=== PATIENT | male | born 1955 | race African-American/Black ===

== ENCOUNTER 2016-04-12 12:41 | Day surgery (SDC) | payer MEDICAID, MEDICARE ==
[2016-04-12 13:21] LABS: Mean Platelet Volume 8.6
[2016-04-12 13:29] LABS: INR 1.6 (<1.1); Prothrombin Time 15.6 sec (9.0-12.0)
[2016-04-12 13:39] VITALS: RESP 16; TEMP 98.5
[2016-04-12 15:37] VITALS: BP 131/74; PULSE 70
--- NOTE | 2016-04-13 09:37 | US ---
EXAMINATION TYPE: US paracentesis abd w/image DATE OF EXAM: 04/12/2016 2:58 PM COMPARISON: NONE HISTORY: Ascites. PROCEDURE: Maximal barrier technique was utilized. The skin overlying a suitable pocket of fluid was localized with ultrasound and the overlying skin was prepped and draped. Ultrasound was utilized with sterile technique. Lidocaine was used for local anesthesia and a skin renato made with a scalpel. Catheter was advanced under direct ultrasound guidance into a suitable pocket of fluid and approximately 5.9 liter s of serous fluid were removed. Catheter was withdrawn and hemostasis achieved. There is no immedia te complication; the patient is discharged in stable condition. IMPRESSION: STATUS POST ULTRASOUND GUIDED PARACENTESIS FOR PALLIATION OF ASCITES. THIS PROCEDURE WA S PERFORMED BY THE UNDERSIGNED.
== END 2016-04-12 15:30 | disposition home or self-care (01) ==
LOC: RADPROMAIN 12:41
PROVIDERS: ATTEND Internal Medicine Hematology & Oncology
DX: R18.8 Other ascites (principal); Z88.0 Allergy status to penicillin; Z88.8 Allergy status to other drugs, medicaments and biological substances
CPT/HCPCS: 36415; 49083; 85049; 85610

== ENCOUNTER 2016-05-08 13:10 | Inpatient (IN) | payer MEDICAID, MEDICARE ==
--- NOTE | 2016-05-08 13:20 | ED ---
Altered Mental Status HPI - General Stated Complaint: Dehydration Time Seen by Provider: 05/08/16 13:10 Source: patient, family, EMS, RN notes reviewed, old records reviewed Mode of arrival: EMS - History of Present Illness Initial Comments: This is a 60-year-old male with history of pancreatic cancer who is being treated by chemotherapy who is brought in for evaluation for some hallucinations and altered mental status also possible dehydration. Again yesterday. He continues in today. Also was reported have some coffee-ground emesis the patient himself denies any GI bleeding. Other complaints are voiced at this time MD Complaint: altered mental status, confusion, other - Related Data Home Medications Medication Instructions Recorded Confirmed Furosemide [Lasix] 20 mg PO DAILY@0800 07/30/14 05/08/16 Lisinopril [Prinivil] 20 mg PO BID@0800,1700 07/30/14 05/08/16 Lipase/Protease/Amylase [Creon Dr 1 cap PO AC-TID 01/28/16 05/08/16 12,000 Units Capsule] Carvedilol [Coreg] 12.5 mg PO BID@0800,1700 01/29/16 05/08/16 Methadone [Dolophine] 10 mg PO TID 01/29/16 05/08/16 Polyethylene Glycol 3350 [Miralax] 17 gm PO TID 01/29/16 05/08/16 Prochlorperazine [Compazine] 10 mg PO Q6H PRN 01/29/16 05/08/16 Verapamil HCl [Verapamil ER] 240 mg PO HS 01/29/16 05/08/16 Ondansetron [Zofran ODT] 8 mg PO Q12HR PRN 04/10/16 05/08/16 Cyanocobalamin [Vitamin B-12] 500 mcg PO DAILY 05/08/16 05/08/16 Ferrous Sulfate [Feosol] 325 mg PO DAILY@0800 05/08/16 05/08/16 Magnesium Oxide [Mag-Ox] 400 mg PO DAILY 05/08/16 05/08/16 Omeprazole [PriLOSEC] 20 mg PO DAILY@0800 05/08/16 05/08/16 Potassium Chloride ER [K-Dur 20] 20 meq PO DAILY@0800 02/21/17 02/21/17 Rivaroxaban [Xarelto] 20 mg PO DAILY@0800 05/08/16 05/08/16 Previous Rx's Medication Instructions Recorded Dicyclomine [Bentyl] 10 mg PO TID #90 cap 02/02/16 Allergies Allergy/AdvReac Type Severity Reaction Status Date / Time Penicillins Allergy Rash/Hives Verified 05/08/16 15:05 rofecoxib [From Vioxx] Allergy Unknown Verified 05/08/16 15:05 NARCOTICS Allergy Unknown Uncoded 05/08/16 15:06 Review of Systems ROS Statement: Those systems with pertinent positive or pertinent negative responses have been documented in the HPI. ROS Other: All systems not noted in ROS Statement are negative. Past Medical History Past Medical History: Diabetes Mellitus, Hypertension Additional Past Medical History / Comment(s): pancreatic cancer History of Any Multi-Drug Resistant Organisms: None Reported Past Surgical History: No Surgical Hx Reported Additional Past Surgical History / Comment(s): implanted port Past Anesthesia/Blood Transfusion Reactions: No Reported Reaction Past Psychological History: No Psychological Hx Reported Smoking Status: Current some day smoker Past Alcohol Use History: None Reported Past Drug Use History: None Reported - Past Family History Father Family Medical History: Unable to Obtain Mother Family Medical History: Unable to Obtain General Exam - General Exam Comments Initial Comments: This is a well-developed well-nourished awake alert male General appearance: alert, in no apparent distress Head exam: Present: atraumatic, normocephalic, normal inspection Eye exam: Present: normal appearance, PERRL, EOMI. Absent: scleral icterus, conjunctival injection, periorbital swelling ENT exam: Present: normal exam, mucous membranes moist Neck exam: Present: normal inspection. Absent: tenderness, meningismus, lymphadenopathy Respiratory exam: Present: normal lung sounds bilaterally. Absent: respiratory distress, wheezes, rales, rhonchi, stridor Cardiovascular Exam: Present: regular rate, normal rhythm, normal heart sounds. Absent: systolic murmur, diastolic murmur, rubs, gallop, clicks GI/Abdominal exam: Present: soft, distended (The exam is consistent with ascites ), normal bowel sounds. Absent: tenderness, guarding, rebound, rigid, pulsatile mass, hernia Rectal exam: Present: deferred Extremities exam: Present: normal inspection, full ROM, normal capillary refill. Absent: tenderness, pedal edema, joint swelling, calf tenderness Back exam: Present: normal inspection Neurological exam: Present: alert, oriented X3, CN II-XII intact Psychiatric exam: Present: normal affect, normal mood Skin exam: Present: warm, dry, intact, normal color. Absent: rash Course Vital Signs 05/08/16 05/08/16 05/08/16 13:20 14:39 16:09 Temperature 97 F L 97.2 F L 98.1 F Pulse Rate 82 82 87 Respiratory 18 18 18 Rate Blood Pressure 130/63 116/67 127/72 O2 Sat by Pulse 100 100 100 Oximetry Medical Decision Making - Medical Decision Making Patient is starting get a little more responsive per his . This appears be secondary to dehydration patient be admitted for continued IV hydration and monitoring. - Lab Data Result diagrams: 05/08/16 13:53 05/08/16 13:53 Lab Results 05/08/16 05/08/16 05/08/16 Range/Units 13:53 13:53 13:53 WBC (3.8-10.6) k/uL RBC (4.30-5.90) m/uL Hgb (13.0-17.5) gm/dL Hct (39.0-53.0) % MCV (80.0-100.0) fL MCH (25.0-35.0) pg MCHC (31.0-37.0) g/dL RDW (11.5-15.5) % Plt Count (150-450) k/uL Neutrophils % % Lymphocytes % % Monocytes % % Eosinophils % % Basophils % % Neutrophils # (1.3-7.7) k/uL Lymphocytes # (1.0-4.8) k/uL Monocytes # (0-1.0) k/uL Eosinophils # (0-0.7) k/uL Basophils # (0-0.2) k/uL Manual Slide Review Poikilocytosis (manual Anisocytosis Sodium 142 (137-145) mmol/L Potassium 3.5 (3.5-5.1) mmol/L Chloride 105 (98-107) mmol/L Carbon Dioxide 27 (22-30) mmol/L Anion Gap 10 mmol/L BUN 16 (9-20) mg/dL Creatinine 0.55 L (0.66-1.25) mg/dL Est GFR (MDRD) Af Amer >60 (>60 ml/min/1.73 sqM) Est GFR (MDRD) Non-Af >60 (>60 ml/min/1.73 sqM) Glucose 105 H (74-99) mg/dL POC Glucose (mg/dL) (75-99) mg/dL POC Glu [employer] ID Calcium 8.4 (8.4-10.2) mg/dL Magnesium 1.6 (1.6-2.3) mg/dL Total Bilirubin 1.1 (0.2-1.3) mg/dL AST 104 H (17-59) U/L ALT 50 (21-72) U/L Alkaline Phosphatase 90 (38-126) U/L Total Creatine Kinase 26 L (55-170) U/L CK-MB (CK-2) 0.4 (0.0-2.4) ng/mL CK-MB (CK-2) Rel Index 1.5 Total Protein 6.8 (6.3-8.2) g/dL Albumin 2.6 L (3.5-5.0) g/dL Amylase 33 (30-110) U/L Lipase 21 L (23-300) U/L Blood Type O Positive Blood Type Recheck No Antibody Screen NEGATIVE Spec Expiration Date 05/11/2016235205/08/16 05/08/16 Range/Units 13:53 14:14 WBC 2.5 L (3.8-10.6) k/uL RBC 3.31 L (4.30-5.90) m/uL Hgb 9.6 L D (13.0-17.5) gm/dL Hct 29.7 L (39.0-53.0) % MCV 89.8 (80.0-100.0) fL MCH 29.0 (25.0-35.0) pg MCHC 32.3 (31.0-37.0) g/dL RDW 18.7 H (11.5-15.5) % Plt Count 82 L D (150-450) k/uL Neutrophils % 71 % Lymphocytes % 23 % Monocytes % 3 % Eosinophils % 1 % Basophils % 0 % Neutrophils # 1.8 (1.3-7.7) k/uL Lymphocytes # 0.6 L (1.0-4.8) k/uL Monocytes # 0.1 (0-1.0) k/uL Eosinophils # 0.0 (0-0.7) k/uL Basophils # 0.0 (0-0.2) k/uL Manual Slide Review Performed Poikilocytosis (manual Present Anisocytosis Slight Sodium (137-145) mmol/L Potassium (3.5-5.1) mmol/L Chloride (98-107) mmol/L Carbon Dioxide (22-30) mmol/L Anion Gap mmol/L BUN (9-20) mg/dL Creatinine (0.66-1.25) mg/dL Est GFR (MDRD) Af Amer (>60 ml/min/1.73 sqM) Est GFR (MDRD) Non-Af (>60 ml/min/1.73 sqM) Glucose (74-99) mg/dL POC Glucose (mg/dL) 94 (75-99) mg/dL POC Glu [employer]ist ID Rebecca, Christiana Calcium (8.4-10.2) mg/dL Magnesium (1.6-2.3) mg/dL Total Bilirubin (0.2-1.3) mg/dL AST (17-59) U/L ALT (21-72) U/L Alkaline Phosphatase (38-126) U/L Total Creatine Kinase (55-170) U/L CK-MB (CK-2) (0.0-2.4) ng/mL CK-MB (CK-2) Rel Index Total Protein (6.3-8.2) g/dL Albumin (3.5-5.0) g/dL Amylase (30-110) U/L Lipase (23-300) U/L Blood Type Blood Type Recheck Antibody Screen Spec Expiration Date - EKG Data -: EKG Interpreted by Ma EKG shows normal: sinus rhythm (Sinus rhythm rate is 79. Interval 122 QRS duration 124 QT/QTC of 396/454 nonspecific interventricular conduction delay nonspecific ST-T wave configuration artifact is present.) - Radiology Data Radiology results: report reviewed (I did review the imaging and report no acute findings), image reviewed Disposition Clinical Impression: Acute encephalopathy, Dehydration, Pancreatic cancer, Chronic pain, Abdominal pain Disposition: ADMITTED IP TO THIS [facility] Condition: Stable
[2016-05-08 14:24] LABS: Anisocytosis Slight; Basophils % (A) 0 %; CH 28.7; Eosinophils % (A) 1 %; HCT 29.7 % (39.0-53.0); Immature Gran Flag Marked; Luc # (Auto) 0.05; Luc % (Auto) 2; Lymphocytes # (A) 0.6 k/uL (1.0-4.8); Lymphocytes % (A) 23 %; MCHC 32.3 g/dL (31.0-37.0); MCV 89.8 fL (80.0-100.0); Mean Platelet Volume 9.3; Monocytes # (A) 0.1 k/uL (0-1.0); Monocytes % (A) 3 %; Neutrophils # (A) 1.8 k/uL (1.3-7.7); Neutrophils % (A) 71 %; RBC 3.31 m/uL (4.30-5.90); RDW 18.7 % (11.5-15.5); WBC 2.5 k/uL (3.8-10.6); WBC (Perox) 2.79
[2016-05-08 14:26] LABS: Glucose,Whole Blood 94 mg/dL (75-99)
[2016-05-08 14:27] LABS: HGB 9.6 gm/dL (13.0-17.5)
[2016-05-08 14:31] LABS: ALT 50 U/L (21-72); AST 104 U/L (17-59); Alkaline Phosphatase 90 U/L (38-126); Amylase 33 U/L (30-110); Anion Gap 10 mmol/L; Blood Urea Nitrogen 16 mg/dL (9-20); Calcium 8.4 mg/dL (8.4-10.2); Carbon Dioxide 27 mmol/L (22-30); Chloride 105 mmol/L (98-107); Glucose 105 mg/dL (74-99); Magnesium 1.6 mg/dL (1.6-2.3); Non-African American GFR(MDRD) >60 (>60 ml/min/1.73 sqM); Potassium 3.5 mmol/L (3.5-5.1); Sodium 142 mmol/L (137-145); Total Bilirubin 1.1 mg/dL (0.2-1.3); Total Protein 6.8 g/dL (6.3-8.2)
[2016-05-08 14:34] LABS: Manual Review Performed
[2016-05-08] MEDS ORDERED: SODIUM CHLORIDE 0.9% 1,000 ML IV STA (14:37)
--- NOTE | 2016-05-08 14:46 | CT ---
EXAMINATION TYPE: CT brain wo con DATE OF EXAM: 05/08/2016 2:33 PM COMPARISON: NONE HISTORY: 60-year-old male complains of confusion. Patient has a history of CA. TECHNIQUE: Examination was done in axial plane without intravenous contrast. Coronal and sagittal reconstructio ns performed. CT DLP: 874.8 mGycm Automated exposure control for dose reduction was used. FINDINGS: Some prominent streak artifact is noted along the frontal convexities, for example, axial image 13. Otherwise, there is no evidence of acute intracranial hemorrhage, acute ischemic changes, mass, mass -effect, or extra-axial fluid collection. There is no effacement of cerebral sulci or basal subarach noid cisterns. There is no hydrocephalus. There is no midline shift. Toussaint-white matter distinction is preserved. There is moderate confluent white matter hypodensities in both cerebral hemispheres and mild cortical atrophy. Mild mucosal thickening ethmoid air cells. Mastoid air cells are pneumatized. IMPRESSION: No acute intracranial abnormality seen. Moderate confluent changes of chronic small vessel ischemic d isease. Mild chronic ethmoid sinus disease.
[2016-05-08 14:48] LABS: Creatine Kinase MB 0.4 ng/mL (0.0-2.4)
--- NOTE | 2016-05-08 14:48 | XR ---
EXAMINATION TYPE: XR chest 2V DATE OF EXAM: 05/08/2016 2:35 PM COMPARISON: 02/07/2016 HISTORY: Shortness of breath TECHNIQUE: Frontal and lateral views of the chest are obtained. FINDINGS: Scattered senescent parenchymal changes noted. Hyperinflation compatible with COPD. MediPort catheter is in place. No evidence for infiltrate. No evidence for atelectasis. Heart size is stable. Mediastinal structures are stable and grossly unremarkable. No evidence for hilar prominence. Degenerative changes dorsal spine. IMPRESSION: 1. No evidence for acute pulmonary disease.
[2016-05-08] MEDS ORDERED: MORPHINE SULFATE 4 MG/ML SYRINGE IVP STA (17:41)
[2016-05-08] MEDS ORDERED: NALOXONE 0.4 MG/ML 1 ML VIAL IV PRN (17:44)
[2016-05-08] MEDS ORDERED: ONDANSETRON ODT 8 MG TAB.RAPDIS PO PRN (17:47)
[2016-05-08] MEDS ORDERED: PROCHLORPERAZINE 10 MG TAB PO PRN (17:47)
[2016-05-08 21:02] VITALS: BMI 19.8
[2016-05-08 21:41] LABS: Glucose,Whole Blood 93 mg/dL (75-99)
[2016-05-08] MEDS: VERAPAMIL SR 240 MG TABLET.ER PO SCH (22:30)
[2016-05-08] MEDS: DICYCLOMINE 10 MG CAP PO SCH (22:30)
[2016-05-08] MEDS: METHADONE 10 MG TAB PO SCH (22:30)
[2016-05-08] MEDS: SODIUM CHLORIDE 0.9% 1,000 ML IV SCH (22:32)
[2016-05-08] MEDS: POLYETHYLENE GLYCOL 3350 17 GM POWD.PACK PO SCH (22:32)
[2016-05-09] MEDS: NICOTINE 7MG/24HR PATCH TRANSDERM SCH ×2 (00:10→09:13)
[2016-05-09 02:09] LABS: Glucose,Whole Blood 76 mg/dL (75-99)
[2016-05-09] MEDS: MORPHINE SULFATE 4 MG/ML SYRINGE IV PRN (04:29)
[2016-05-09 07:21] LABS: Glucose,Whole Blood 70 mg/dL (75-99)
[2016-05-09] MEDS: DICYCLOMINE 10 MG CAP PO SCH ×3 (09:11→21:35)
[2016-05-09] MEDS: MAGNESIUM OXIDE 400 MG TAB PO SCH (09:12)
[2016-05-09] MEDS: POTASSIUM CHLORIDE ER 20 MEQ TAB.ER PO SCH (09:12)
[2016-05-09] MEDS: FERROUS SULFATE 325 MG TAB PO SCH (09:12)
[2016-05-09] MEDS: RIVAROXABAN 10 MG TAB PO SCH (09:12)
[2016-05-09] MEDS: FUROSEMIDE 20 MG TAB PO SCH (09:12)
[2016-05-09] MEDS: PANTOPRAZOLE 40 MG TABLET PO SCH (09:12)
[2016-05-09] MEDS: LISINOPRIL 20 MG TAB PO SCH ×2 (09:12→17:57)
[2016-05-09] MEDS: LIPASE 5,000/PROTEASE 17,000/AMYLASE 27,0000 PO SCH ×3 (09:12→18:00)
[2016-05-09] MEDS: CARVEDILOL 12.5 MG TAB PO SCH ×2 (09:12→17:57)
[2016-05-09] MEDS: POLYETHYLENE GLYCOL 3350 17 GM POWD.PACK PO SCH ×3 (09:13→21:32)
[2016-05-09] MEDS: METHADONE 10 MG TAB PO SCH ×4 (09:36→21:36)
[2016-05-09] MEDS: SODIUM CHLORIDE 0.9% 1,000 ML IV SCH (09:37)
[2016-05-09] MEDS: DEXTROSE 5%-0.9% NACL 1,000 ML IV SCH ×2 (11:53→22:27)
[2016-05-09] MEDS: CYANOCOBALAMIN 500 MCG TAB PO SCH (11:54)
[2016-05-09 12:01] LABS: Glucose,Whole Blood 88 mg/dL (75-99)
--- NOTE | 2016-05-09 13:01 | HP ---
DATE OF ADMISSION: 05/08/2016 PRESENTING COMPLAINT: Weak, tired. HISTORY OF PRESENTING COMPLAINT: This is a 60-year-old patient of Dr. Link whose oncologist is Dr. Head. Patient's chronic stable medical conditions include diabetes mellitus type 2, hypertension. Patient has been diagnosed with pancreatic cancer back in November of last year. Initially he was getting chemotherapy at [facility], then he is also locally in town with Dr. Head. Last chemo was on April 02. Patient's appetite continues to go down. Patient has increasing abdominal pain, continues to lose weight. Patient is barely eating for the last 4 days. Tired and rundown. The patient's is at bedside, is extensively loosing weight. REVIEW OF SYSTEMS: CONSTITUTIONAL: Weight loss, loss of appetite, tired and rundown. Per the , patient's sensorium is sometimes getting altered. HEENT: None. RESPIRATORY: Shortness of breath. CARDIOVASCULAR: None. GASTROINTESTINAL: Occasional loose stool. GENITOURINARY: None. MUSCULOSKELETAL: None. DERMATOLOGIC: None. HEMATOLOGIC: None. LYMPHATICS: None. PSYCHIATRY: Some depression. NEUROLOGICAL: None. PAST MEDICAL HISTORY: Pancreatic cancer, diabetes mellitus type 2, hypertension, DVT, pancreatic cancer with metastasis to the peritoneal lining and lungs, right leg DVT in February of 2016. PAST SURGICAL HISTORY: Right chest wall port. SOCIAL HISTORY: Patient still smokes a few cigarettes a day. Lives with his . FAMILY HISTORY: Reviewed, noncontributory to the presentation. HOME MEDICATIONS: 1. Verapamil ER 240 mg q.h.s. 2. Xarelto 20 mg daily. 3. Compazine 10 mg q.6 p.r.n. 4. Potassium 20 mEq p.o. daily. 5. MiraLax 17 gm p.o. t.i.d. 6. Zofran 8 mg p.o. q.12 p.r.n. 7. Prilosec 20 mg p.o. daily. 8. Methadone 10 mg p.o. t.i.d. 9. Magnesium oxide 400 mg p.o. daily. 10. Prinivil 20 mg p.o. b.i.d. 11. Creon 12,000 units 1 capsule p.o. t.i.d. 12. Lasix 20 mg p.o. daily. 13. Iron 325 p.o. daily. 14. Bentyl 10 mg p.o. t.i.d. 15. Vitamin B12 five hundred mcg p.o. daily. 16. Coreg 12.5 p.o. b.i.d. Allergies to PENICILLIN, VIOXX, NARCOTICS TYPE UNKNOWN. On examination, vital signs on presentation: Temperature 97, pulse 82, respiration 18, blood pressure 130/63, pulse ox 100% on 2 L. GENERAL APPEARANCE: Thin built, emaciated, sitting up, very tired-appearing. EYES : Pupils equal, conjunctivae are pale. HEENT: External appearance of nose and ears normal. Oral cavity normal. NECK: JVD not raised. Mass not palpable. Respiratory effort increased. LUNGS: Diminished breath sounds. CARDIOVASCULAR: First and second sounds normal. No edema. ABDOMEN: Slightly distended. Tenderness. Liver and spleen not palpable. LYMPHATIC: No lymph nodes palpable in neck or axillae. PSYCHIATRY: Alert and oriented x3. Mood and affect low-appearing. NEUROLOGICAL: Pupils equal, cranial nerves grossly intact, power and sensation grossly intact. MUSCULOSKELETAL: Diffuse wasting of muscles. INVESTIGATIONS: White count 2.5, hemoglobin 9.6, platelets 82, potassium 3.5, albumin 2.6. Chest x-ray nil acute reported. CT scan of the brain nil acute. ASSESSMENT: 1. Metastatic pancreatic cancer with metastases to the peritoneal lining and lungs, undergoing chemotherapy. 2. Chronic obstructive pulmonary disease in a current smoker. 3. Chronic nicotine dependence. Patient active cigarette smoker. 4. History of deep venous thrombosis, chronically on Xarelto. 5. Chronic pain for which patient is on methadone. 6. Metabolic encephalopathy, could be from the cancer itself, also could be from the hefty dose of pain medications patient is getting. 7. Essential hypertension. 8. Severe protein calorie malnutrition. Patient has loss of weight, low albumin, loss of muscle mass. 9. Pancytopenia from chemotherapy. PLAN: Patient's home medications are resumed. Will hold off patient's Lasix, hydrate the fluid. Patient's functional status is declining and this may interfere with patient's other treatment from the chemotherapy. Dr. Head will be consulted. ADVANCED CARE PLANNING: Patient's end of life discussion was held in detail with the patient and . It was explained that the patient's chemotherapy treatment will continue but in the event his heart is to stop and he stops breathing, it may not be the best option to proceed with resuscitation. Patient clearly states he did not wish to be resuscitated in the presence of the . Hence patient's course status is being changed to DNR. Additional time for advanced care planning in addition to the history and physical was about 20 to 25 minutes.
[2016-05-09 16:46] LABS: Glucose,Whole Blood 96 mg/dL (75-99)
[2016-05-09 20:28] LABS: Glucose,Whole Blood 118 mg/dL (75-99)
[2016-05-09] MEDS: VERAPAMIL SR 240 MG TABLET.ER PO SCH (21:31)
--- NOTE | 2016-05-09 23:32 | P.CONS ---
History of Present Illness - Reason for Consult Consult date: 05/09/16 AMS. Pancreatic ca on chemo - History of Present Illness Mr Sagastume is a pleasant AAM, initially seen in consult at [facility] on 02/18/16. He had developed abdominal pain, with decreased appetite and weight loss, since the late spring of 2015. He had CT scans in 08/31 with no specific findings other than a rt lung sub cm nodule. He had a PET on 09/17/15, which was read as indeterminate in the lung nodule with no other suspicious findings mentioned. A hypodensity was seen in the right lobe of the liver ( 2 cm), which was difficult to evaluate due to heteogeneity of the parenchyma. F/U CT chest on revealed abnormal soft tissue involving the tail of the pancreas, measuring 7.8 x 5.6 cm. The PET scan, in retrospect was felt to show abnormal uptake in this region, per an addendum. He was referred to [facility] and had a FNA on 12/30/15 revealing adeno ca. Initial Ca 19-9 was in the 2500 range, and then increased into the 5000 range. He was seen by Dr Brambila at [facility], and started on Gemzar/Abraxane. He had a delay after D1, C1 due to pneumonia. He had the D8 dose on 02/13/16. He was then admitted to [facility] on 02/17/16 with an extensive RLE DVT and progressive ascites. He was treated with IV heparin, and had a paracentesis, with cytology positive. CTA that admission also showed multiple lung nodules , c/w metastases. He was then discharged on Lovenox. He resumed chemo on 03/15/16 , given as D1C2. He was seen for his 1st OV on , as he wanted to transfer his care here. He was continued on chemo. He is s/p 3 cycles, with dose delayed and reduced for cycle 3 due to side effects. Most recent treatment was on 05/03/16 ( D15 C3) He was brought to the ER, as he had been very lethargic and confused over the past 2-3 days, with progressive symptoms. PO intake had been quite poor. There was no h/o n/v/or significant diarrhea. He was admitted and consult placed for further evaluation and recommendations. Review of Systems Constitutional: Reports chronic pain, Reports fatigue, Reports poor appetite, Reports weakness, Reports weight loss Eyes: denies blurred vision, denies pain Ears: deny: decreased hearing, ear discharge, earache, tinnitus Ears, nose, mouth and throat: Denies headache, Denies sore throat Cardiovascular: Reports decreased exercise tolerance Respiratory: Reports dyspnea Gastrointestinal: Reports as per HPI (ascites), Reports abdominal pain Genitourinary: Reports urinary frequency Musculoskeletal: Reports muscle weakness Integumentary: Denies pruritus, Denies rash Neurological: Reports change in mentation, Reports confusion, Reports weakness Psychiatric: Reports confusion Endocrine: Reports fatigue, Reports weight change Hematologic/Lymphatic: Reports as per HPI Past Medical History Past Medical History: Diabetes Mellitus, Deep Vein Thrombosis (DVT), Hypertension Additional Past Medical History / Comment(s): pancreatic cancer with mets to peritoneal lining and lungs; right leg dvt 03/02; History of Any Multi-Drug Resistant Organisms: None Reported Past Surgical History: No Surgical Hx Reported Additional Past Surgical History / Comment(s): right implanted port Past Anesthesia/Blood Transfusion Reactions: No Reported Reaction Past Psychological History: No Psychological Hx Reported Smoking Status: Current some day smoker Past Alcohol Use History: None Reported Past Drug Use History: None Reported - Past Family History Father Family Medical History: Unable to Obtain Mother Family Medical History: Unable to Obtain Medications and Allergies Home Medications Medication Instructions Recorded Confirmed Type Furosemide [Lasix] 20 mg PO DAILY@0800 07/30/14 05/08/16 History Lisinopril [Prinivil] 20 mg PO BID@0800,1700 07/30/14 05/08/16 History Lipase/Protease/Amylase [Creon Dr 1 cap PO AC-TID 01/28/16 05/08/16 History 12,000 Units Capsule] Carvedilol [Coreg] 12.5 mg PO BID@0800,1700 01/29/16 05/08/16 History Methadone [Dolophine] 10 mg PO TID 01/29/16 05/08/16 History Polyethylene Glycol 3350 [Miralax] 17 gm PO TID 01/29/16 05/08/16 History Prochlorperazine [Compazine] 10 mg PO Q6H PRN 01/29/16 05/08/16 History Verapamil HCl [Verapamil ER] 240 mg PO HS 01/29/16 05/08/16 History Ondansetron [Zofran ODT] 8 mg PO Q12HR PRN 04/10/16 05/08/16 History Cyanocobalamin [Vitamin B-12] 500 mcg PO DAILY 05/08/16 05/08/16 History Ferrous Sulfate [Feosol] 325 mg PO DAILY@0800 05/08/16 05/08/16 History Magnesium Oxide [Mag-Ox] 400 mg PO DAILY 05/08/16 05/08/16 History Omeprazole [PriLOSEC] 20 mg PO DAILY@0805/08/16 05/08/16 History Potassium Chloride ER [K-Dur 20] 20 meq PO DAILY@0805/08/16 05/08/16 History Rivaroxaban [Xarelto] 20 mg PO DAILY@79905/08/16 05/08/16 History Allergies Allergy/AdvReac Type Severity Reaction Status Date / Time Penicillins Allergy Rash/Hives Verified 05/08/16 15:05 rofecoxib [From Vioxx] Allergy Unknown Verified 05/08/16 15:05 NARCOTICS Allergy Unknown Uncoded 05/08/16 15:06 Physical Exam Vitals: Vital Signs Temp Pulse Resp BP Pulse Ox 05/09/16 08:00 16 05/09/16 07:00 97 F L 87 16 141/77 97 05/08/16 22:17 98.1 F 94 16 114/66 97 Intake and Output 05/08/16 05/09/16 05/09/16 22:59 06:59 14:59 Intake Total 1040 Balance 1040 Intake: IV 800 Sodium Chloride 0.9% 1, 800 000 ml @ 100 mls/hr IV . Q10H [facility] Rx#:[id number] Oral 240 Other: Voiding Method Toilet Toilet # Voids 1 1 Weight 68.039 kg - Constitutional General appearance: no acute distress - EENT Eyes: EOMI, PERRLA ENT: hearing grossly normal, normal oropharynx - Respiratory Respiratory: bilateral: diminished - Cardiovascular Rhythm: regular Heart sounds: normal: S1, S2 - Gastrointestinal Ascites likely present, but abdomen is soft General gastrointestinal: distended, normal bowel sounds - Integumentary Integumentary: normal - Neurologic Neurologic: CNII-XII intact - Musculoskeletal Musculoskeletal: generalized weakness, strength equal bilaterally - Psychiatric Pt is more responsive. Follows commands appropriately. He was still confused and could not name me. He was able to recall his 's name, but not the month Results CBC & Chem 7: 05/08/16 13:53 05/08/16 13:53 Labs: Abnormal Lab Results - Last 24 Hours (Table) 05/09/16 Range/Units 07:19 POC Glucose (mg/dL) 70 L (75-99) mg/dL Chest x-ray: report reviewed CT Scan - head: report reviewed Assessment and Plan (1) Acute encephalopathy Narrative/Plan: This represents a new finding. The differentials include hepatic encephalopathy , medication effect and dehydration. His liver enzymes did not show any worsening. There was no majorincrease in ascites. Infection is also less likely given his exam and normal vitals. I will however check an ammonia level , and urinalysis. The pt is somehat improved with hydration. Methadone has been held and he is on IV morphine. If additional labs are negative, and the pt fails to improve, I will consider contrast brain imaging Status: Acute (2) Pancreatic cancer Narrative/Plan: The pt has completed 3 cycles with course as noted. CA 19-9 after 2 cycles had shown a response. I will repeat the same. Assuming satisfactory results, and improvement in his clinical condition, chemo will resume as an outpt Status: Acute (3) Pancytopenia due to antineoplastic chemotherapy Narrative/Plan: This is due to chemotherapy. All counts are in a safe range. Continue to monitor and supplement as needed. Hold xarelto if platelets fall below 50K Status: Acute
[2016-05-10 03:01] LABS: Glucose,Whole Blood 111 mg/dL (75-99)
[2016-05-10 06:31] LABS: Anisocytosis Slight; CH 28.4; CHCM 31.8; HCT 29.3 % (39.0-53.0); HDW 2.73; HGB 9.5 gm/dL (13.0-17.5); Hypochromasia Slight; Immature Gran Flag Marked; MCHC 32.4 g/dL (31.0-37.0); MCV 89.7 fL (80.0-100.0); Mean Platelet Volume 10.1; RBC 3.27 m/uL (4.30-5.90); RDW 18.4 % (11.5-15.5); WBC (Perox) 6.12
[2016-05-10 06:40] LABS: INR 1.6 (<1.1); Partial Thromboplastin Time 27.3 sec (22.0-30.0); Prothrombin Time 15.7 sec (9.0-12.0)
[2016-05-10 06:43] LABS: ALT 44 U/L (21-72); AST 70 U/L (17-59); Alkaline Phosphatase 87 U/L (38-126); Anion Gap 7 mmol/L; Blood Urea Nitrogen 9 mg/dL (9-20); Calcium 8.1 mg/dL (8.4-10.2); Carbon Dioxide 28 mmol/L (22-30); Chloride 110 mmol/L (98-107); Glucose 113 mg/dL (74-99); Non-African American GFR(MDRD) >60 (>60 ml/min/1.73 sqM); Sodium 145 mmol/L (137-145); Total Bilirubin 0.7 mg/dL (0.2-1.3)
[2016-05-10 07:06] LABS: Potassium 2.9 mmol/L (3.5-5.1)
[2016-05-10 07:12] LABS: Glucose,Whole Blood 125 mg/dL (75-99)
[2016-05-10 07:43] LABS: Add Differential Manual Differential
[2016-05-10 07:49] LABS: Band Neutrophils % 2.5 %; Metamyelocytes % 0.5 %; Nucleated Red Blood Cells 1 /100 WBC (0-0); Total Cells Counted 200
[2016-05-10 07:50] LABS: Large Platelets Present; Manual Review Performed; WBC 5.7 k/uL (3.8-10.6)
[2016-05-10] MEDS: DEXTROSE 5%-0.9% NACL 1,000 ML IV SCH ×2 (08:19→17:01)
[2016-05-10] MEDS: FERROUS SULFATE 325 MG TAB PO SCH (08:23)
[2016-05-10] MEDS: CARVEDILOL 12.5 MG TAB PO SCH ×2 (08:23→17:00)
[2016-05-10] MEDS: RIVAROXABAN 10 MG TAB PO SCH (08:24)
[2016-05-10] MEDS: LISINOPRIL 20 MG TAB PO SCH (08:24)
[2016-05-10] MEDS: POTASSIUM CHLORIDE ER 20 MEQ TAB.ER PO SCH ×3 (08:24→13:38)
[2016-05-10] MEDS: PANTOPRAZOLE 40 MG TABLET PO SCH (08:24)
[2016-05-10] MEDS: NICOTINE 7MG/24HR PATCH TRANSDERM SCH (08:25)
[2016-05-10] MEDS: FUROSEMIDE 20 MG TAB PO SCH (08:26)
[2016-05-10] MEDS: DICYCLOMINE 10 MG CAP PO SCH ×3 (08:27→21:49)
[2016-05-10] MEDS: MAGNESIUM OXIDE 400 MG TAB PO SCH (08:27)
[2016-05-10] MEDS: POLYETHYLENE GLYCOL 3350 17 GM POWD.PACK PO SCH ×3 (08:29→21:55)
[2016-05-10] MEDS: METHADONE 10 MG TAB PO SCH ×2 (10:04→21:56)
[2016-05-10] MEDS: POTASSIUM CHLORIDE 20 MEQ, LIDOCAINE 2% INJ 20 MG in SODIUM CHLORIDE 0.9% 100 ML IVPB SCH ×2 (10:09→13:22)
[2016-05-10] MEDS: LIPASE 5,000/PROTEASE 17,000/AMYLASE 27,0000 PO SCH ×3 (10:16→17:03)
[2016-05-10] MEDS: POTASSIUM CHLORIDE ER 20 MEQ TAB.ER PO STA ×2 (10:17→13:20)
--- NOTE | 2016-05-10 11:34 | PN ---
Patient is a 60-year-old gentleman with a history of metastatic pancreatic cancer, still complaining of severe abdominal pain. Patient is on oxycodone for that. Came in with nausea, vomiting and diarrhea, resulting in metabolic encephalopathy from dehydration and regarding metabolic encephalopathy, patient is doing well and we are getting an MRI of the brain to rule out any metastatic lesions to the brain and patient appears to be cachectic. REVIEW OF SYSTEMS: GENERAL: Patient is complaining of generalized tiredness, excessive fatigue and severe abdominal pain from his peritoneal metastasis. CARDIOVASCULAR: No chest pain, no orthopnea, no PND, no palpitations. PULMONARY: Denied any shortness of breath. No cough or hemoptysis. GASTROINTESTINAL: No diarrhea, nausea or vomiting. No abdominal pain. Normoactive bowel sounds. NEUROLOGIC: No headaches, no weakness, no numbness. Medications were reviewed. PHYSICAL EXAMINATION: VITAL SIGNS: Temperature 98.3, pulse of 84, respiratory rate of 18, blood pressure 107/69, saturating at 98% on room air. GENERAL EXAMINATION: Patient is thin built, cachectic, alert and oriented x3. Abdomen is distended with minimal diffuse tenderness secondary to metastatic abdominal disease or omental metastasis from pancreatic cancer. Bowel sounds are present. HEENT: Pupils are round and equally reacting to light. EOMI. No scleral icterus. No conjunctival pallor. Normocephalic, atraumatic. No pharyngeal erythema. No thyromegaly. CARDIOVASCULAR: S1 and S2 present. No murmurs, rubs, or gallops. PULMONARY: Chest is clear to auscultation, no wheezing or crackles. MUSCULOSKELETAL: No joint swelling or deformity. EXTREMITIES: No cyanosis, clubbing, or pedal edema. NEUROLOGICAL: Gross neurological examination did not reveal any focal deficits. SKIN: No rashes. LABORATORY DATA: Potassium is low at 2.9, which will be supplemented and patient is getting IV fluids, because of which I am discontinuing Lasix and lisinopril. Patient's blood pressure is on the low-normal side because of which I do not believe patient will require lisinopril at this point of time. Electrolytes will be supplemented. ASSESSMENT AND PLAN: 1. Metastatic pancreatic cancer with peritoneal metastases. 2. Chronic obstructive pulmonary disease without any acute exacerbation. 3. Nicotine dependence. 4. History of deep venous thrombosis for which patient is on Xarelto. 5. Chronic pain secondary to cancer for which patient is on methadone. 6. Metabolic encephalopathy, improved symptoms from dehydration and electrolyte abnormalities. 7. Essential hypertension. 8. Severe protein calorie malnutrition. 9. Pancytopenia, which is improving at this point of time from chemotherapy. 10. Multiple other electrolyte abnormalities secondary to diarrhea. Patient is getting Lasix that will be discontinued, lisinopril will be discontinued. Patient is still having diarrhea and some nausea, vomiting. Patient will be started on gentle hydration with lactated Ringer's because of his elevated chloride. Patient will need GI prophylaxis.
[2016-05-10 11:38] LABS: Glucose,Whole Blood 113 mg/dL (75-99)
[2016-05-10] MEDS: MAGNESIUM SULFATE-D5W PMX 1 GM in DEXTROSE/WATER 1 100ML.BAG IVPB SCH ×2 (13:23→14:22)
[2016-05-10] MEDS: LACTATED RINGERS 1,000 ML IV SCH (13:30)
[2016-05-10] MEDS: FAMOTIDINE 20 MG TAB PO SCH ×2 (13:31→21:49)
[2016-05-10] MEDS: CYANOCOBALAMIN 500 MCG TAB PO SCH (13:32)
[2016-05-10] MEDS: MORPHINE SULFATE 4 MG/ML SYRINGE IV PRN (14:29)
[2016-05-10 17:27] LABS: Glucose,Whole Blood 97 mg/dL (75-99)
[2016-05-10 20:23] LABS: Glucose,Whole Blood 83 mg/dL (75-99)
--- NOTE | 2016-05-10 21:35 | P.PN ---
Subjective The patient overall looks more comfortable. He is more alert and responsive though still somewhat confused. Objective - Vital Signs Vital signs: Vital Signs Temp 97.4 F L 05/10/16 15:36 Pulse 83 05/10/16 16:00 Resp 18 05/10/16 16:00 BP 113/67 05/10/16 15:36 Pulse Ox 98 05/10/16 15:36 - Constitutional General appearance: Present: no acute distress - EENT Eyes: Present: EOMI, PERRLA ENT: Present: hearing grossly normal, normal oropharynx - Respiratory Respiratory: bilateral: CTA - Cardiovascular Rhythm: regular Heart sounds: normal: S1, S2 - Gastrointestinal General gastrointestinal: Present: distended, soft - Integumentary Integumentary: Present: normal - Neurologic Neurologic: Present: CNII-XII intact - Musculoskeletal Musculoskeletal: Present: generalized weakness - Psychiatric Psychiatric Comment(s): The patient is still confused though somewhat improved compared to yesterday. Responses are somewhat faster. He was able to remember that I am his "Chemotherapy Dr ", but could not name me. With some difficulty, he was able to state that this was April. - Labs CBC & Chem 7: 05/10/16 06:25 05/10/16 06:25 Assessment and Plan (1) Acute encephalopathy Narrative/Plan: The patient is somewhat improved , but still significantly confused, compared to his baseline. Ammonia levels were normal. There is no evidence of infection. As noted, based on labs and clinical exam there does not appear to be any significant liver decompensation. I will check MRI of the brain. If negative, it is more likely that the change in mental status is due to dehydration and would be expected to improve further with continuing hydration Status: Acute (2) Pancreatic cancer Narrative/Plan: His CA 19-9 level, done prior to his last chemotherapy showed further decrease , indicating response. Assuming that the patient is able to improve sufficiently, we will resume chemotherapy in the outpatient setting. In that situation, we may have to consider dose adjustment , given his ongoing problems with a poor appetite and resultant progressive weakness Status: Acute (3) Pancytopenia due to antineoplastic chemotherapy Status: Acute
[2016-05-10] MEDS: VERAPAMIL SR 240 MG TABLET.ER PO SCH (21:55)
[2016-05-11] MEDS: DEXTROSE 5%-0.9% NACL 1,000 ML IV SCH ×2 (01:40→12:06)
[2016-05-11 02:06] LABS: Glucose,Whole Blood 83 mg/dL (75-99)
[2016-05-11] MEDS: METHADONE 10 MG TAB PO SCH ×5 (02:45→20:47)
[2016-05-11] MEDS: LACTATED RINGERS 1,000 ML IV SCH ×2 (04:01→10:54)
[2016-05-11 06:10] LABS: Anisocytosis Slight; CH 28.7; CHCM 32.4; HCT 26.3 % (39.0-53.0); HDW 2.88; HGB 8.8 gm/dL (13.0-17.5); Large Platelets Flag Slight; MCH 29.7 pg (25.0-35.0); MCHC 33.4 g/dL (31.0-37.0); MCV 88.9 fL (80.0-100.0); Mean Platelet Volume 11.2; RBC 2.96 m/uL (4.30-5.90); RDW 18.9 % (11.5-15.5)
[2016-05-11 06:18] LABS: Anion Gap 4 mmol/L; Blood Urea Nitrogen 8 mg/dL (9-20); Carbon Dioxide 28 mmol/L (22-30); Chloride 109 mmol/L (98-107); Glucose 92 mg/dL (74-99); Non-African American GFR(MDRD) >60 (>60 ml/min/1.73 sqM); Potassium 3.5 mmol/L (3.5-5.1); Sodium 141 mmol/L (137-145)
[2016-05-11 07:19] LABS: Glucose,Whole Blood 89 mg/dL (75-99)
[2016-05-11] MEDS: CARVEDILOL 12.5 MG TAB PO SCH ×2 (08:38→18:35)
[2016-05-11] MEDS: LIPASE 5,000/PROTEASE 17,000/AMYLASE 27,0000 PO SCH ×3 (08:43→18:35)
[2016-05-11] MEDS: NICOTINE 7MG/24HR PATCH TRANSDERM SCH (08:43)
[2016-05-11] MEDS: RIVAROXABAN 10 MG TAB PO SCH (08:44)
[2016-05-11] MEDS: POTASSIUM CHLORIDE ER 20 MEQ TAB.ER PO SCH (08:44)
[2016-05-11] MEDS: FERROUS SULFATE 325 MG TAB PO SCH (08:44)
[2016-05-11] MEDS: DICYCLOMINE 10 MG CAP PO SCH ×3 (08:45→20:48)
[2016-05-11] MEDS: FAMOTIDINE 20 MG TAB PO SCH ×2 (08:45→20:48)
[2016-05-11] MEDS: POLYETHYLENE GLYCOL 3350 17 GM POWD.PACK PO SCH ×3 (08:45→20:48)
[2016-05-11] MEDS: MAGNESIUM OXIDE 400 MG TAB PO SCH (08:45)
[2016-05-11] MEDS ORDERED: POTASSIUM CHLORIDE ER 20 MEQ TAB.ER PO STA (10:10)
[2016-05-11 11:22] LABS: Glucose,Whole Blood 105 mg/dL (75-99)
[2016-05-11] MEDS: CYANOCOBALAMIN 500 MCG TAB PO SCH (12:50)
[2016-05-11 17:25] LABS: Glucose,Whole Blood 87 mg/dL (75-99)
--- NOTE | 2016-05-11 17:33 | P.PN ---
Subjective Principal diagnosis: Mental status changes. Metastatic pancreatic cancer The patient continues to improve slowly in terms of alertness unresponsiveness. He still has periods of confusion Objective - Vital Signs Vital signs: Vital Signs Temp 96.1 F L 05/11/16 15:36 Pulse 104 H 05/11/16 15:47 Resp 18 05/11/16 15:47 BP 125/75 05/11/16 15:36 Pulse Ox 97 05/11/16 15:36 Intake & Output 05/10/16 05/11/16 05/11/16 18:59 06:59 18:59 Intake Total 1115 998 525 Output Total 4 Balance 1111 998 525 Weight 68.039 kg 68.039 kg Intake: IV 600 Dextrose 5%-0.9% NaCl 1, 600 000 ml @ 100 mls/hr IV . Q10H [facility] Rx#:[id number] Intake, IV Titration 275 600 525 Amount Lactated Ringers 1,000 ml 75 600 525 @ 75 mls/hr IV .[id number] [facility] Rx#:[id number] Magnesium Sulfate-D5w Pmx 100 1 gm In Dextrose/Water 1 100ml.bag @ 100 mls/hr IVPB Q1H [facility] Rx#: [id number] Potassium Chloride 20 meq 100 Lidocaine 2% Inj 20 mg In Sodium Chloride 0.9% 100 ml @ 55.5 mls/hr IVPB Q2H [facility] Rx#:[id number] Oral 240 398 Output: Emesis 4 Other: Voiding Method Toilet Toilet Urinal Diaper Incontinent # Voids 2 1 # Bowel Movements 4 1 - Constitutional General appearance: Present: no acute distress - EENT ENT: Present: hearing grossly normal, normal oropharynx - Respiratory Respiratory: bilateral: CTA - Cardiovascular Rhythm: regular Heart sounds: normal: S1, S2 - Gastrointestinal General gastrointestinal: Present: distended, soft - Neurologic Neurologic Comment(s): Significant generalized weakness. The patient was easily arousable. He did seem to be more alert and responsive today. He was able to state that I was his chemotherapy Dr., as well as name street that he lived on no not the house number. He did not have any trouble recalling his own birthday or the month. Neurologic: Present: CNII-XII intact - Musculoskeletal Musculoskeletal: Present: generalized weakness - Labs CBC & Chem 7: 05/11/16 05:45 05/11/16 05:45 Labs: Abnormal Lab Results - Last 24 Hours (Table) 05/11/16 05/11/16 05/11/16 Range/Units 05:45 05:45 11:17 WBC 13.0 H (3.8-10.6) k/uL RBC 2.96 L (4.30-5.90) m/uL Hgb 8.8 L (13.0-17.5) gm/dL Hct 26.3 L (39.0-53.0) % RDW 18.9 H (11.5-15.5) % Plt Count 52 L (150-450) k/uL Chloride 109 H (98-107) mmol/L BUN 8 L (9-20) mg/dL Creatinine 0.60 L (0.66-1.25) mg/dL POC Glucose (mg/dL) 105 H (75-99) mg/dL Calcium 8.0 L (8.4-10.2) mg/dL Assessment and Plan (1) Acute encephalopathy Narrative/Plan: There continues to be slow improvement. As noted so far, no major metabolic abnormality or signs of infection have been found. The patient will have an MRI of the brain today. If negative, assumption is that his presentation is most likely from dehydration. Status: Acute (2) Pancreatic cancer Narrative/Plan: The patient has responded well to chemotherapy, though tolerance in terms of fatigue and loss of appetite, has been poor. He was given Megace, but did not take it. His was urged to start this on him at discharge. At this time, assuming that the patient continues to improve, the plan would be to delay the next cycle of chemotherapy and also dose reduce Status: Acute (3) Pancytopenia due to antineoplastic chemotherapy Narrative/Plan: Hemoglobin and platelets of shown a slow decline. White count has recovered. His due to chemotherapy effect. Counts still in a safe range. Continue to monitor Status: Acute Plan: If MRI of the brain is negative, from my standpoint the patient is likely okay for discharge whenever felt to be appropriate by the admitting service
--- NOTE | 2016-05-11 19:13 | DS ---
DATE OF ADMISSION: 05/08/2016 DATE OF DISCHARGE: 60-year-old admitted with metastatic pancreatic cancer came in with diarrhea, nausea, vomiting, all of which improved at this point of time. Dehydration, improved and patient had metabolic encephalopathy secondary to dehydration. Patient is also getting an MRA of the head to rule out any metastases disease to the brain. If after MRA patient does not have any metastases disease, patient will be discharged today. Patient dehydration significantly improved. Patient has episodes of confusion secondary to narcotic medications including morphine. Patient is actually on high amount of narcotics even at home, because of severe abdominal pain from pancreatitis and patient is otherwise clinically doing well and patient if continues to do well will be discharged later in the day as mentioned above. His Lasix and Lisinopril were discontinued because of low blood pressures and dehydration issues. REVIEW OF SYSTEMS: CARDIOVASCULAR: No chest pain, no orthopnea, no PND, no palpitations. PULMONARY: Denied any shortness of breath. No cough or hemoptysis. GASTROINTESTINAL: No diarrhea, nausea or vomiting. No abdominal pain. Normoactive bowel sounds. NEUROLOGIC: No headaches, no weakness, no numbness. Medications are reviewed. PHYSICAL EXAMINATION: VITAL SIGNS: Temperature 98.1, pulse of 58, respiratory rate of 16, blood pressure is 111/69, saturating at 100% on room air. GENERAL: The patient is thin built, cachectic, alert and oriented x3. ABDOMEN: Abdomen distended. Minimal diffuse tenderness from metastatic pancreatic cancer. Bowel sounds are present. HEENT: Pupils are round and equally reacting to light. EOMI. No scleral icterus. No conjunctival pallor. Normocephalic, atraumatic. No pharyngeal erythema. No thyromegaly. CARDIOVASCULAR: S1 and S2 present. No murmurs, rubs, or gallops. PULMONARY: Chest is clear to auscultation, no wheezing or crackles. MUSCULOSKELETAL: No joint swelling or deformity. EXTREMITIES: No cyanosis, clubbing, or pedal edema. NEUROLOGICAL: Gross neurological examination did not reveal any focal deficits. SKIN: No rashes. LABORATORY DATA: CBC, basic metabolic profile is essentially within normal limits except for elevated WBC count, which is improving. His pancytopenia appears to have been improving. ASSESSMENT AND PLAN: 1. Metastatic pancreatic cancer with peritoneal metastasis. 2. Bicytopenia ( ) pancytopenia. WBC count is definitely improving at this point of time and this is secondary to chemotherapy. 3. Nicotine dependence. 4. Deep venous thrombosis for which patient is on Xarelto. 5. Metabolic encephalopathy secondary to dehydration, which improved. 6. Essential hypertension. 7. Severe protein calorie malnutrition. 8. Electrolyte abnormality secondary to diarrhea, which improved. Please refer to my depart summary for further details of discharge medications. After MRI and if the patient stays and the patient does not have any more diarrhea or nausea, vomiting, patient will be discharged today to home today. Spent greater than 35 minutes in total discharge process. DISCHARGE DIET: Cardiac. Activity as tolerated. Follow with Dr. Kris Link in 3 to 7 days and follow up with Dr. Tip Head as scheduled.
[2016-05-11] MEDS: VERAPAMIL SR 240 MG TABLET.ER PO SCH (20:48)
[2016-05-11 21:05] LABS: Glucose,Whole Blood 149 mg/dL (75-99)
--- NOTE | 2016-05-11 23:26 | MR ---
EXAMINATION TYPE: MR brain wo/w con DATE OF EXAM: 05/11/2016 6:34 PM COMPARISON: NONE HISTORY: Mental status changes, Pancreatic cancer CONTRAST: Standard multiplanar, multisequence MRI departmental protocol utilizing 15 mL intravenous MultiHance gadolinium contrast. FINDINGS: On the FLAIR and T2 images there are patchy areas of abnormal increased signal in the periv entricular white matter. These measure up to 2 cm. There is no mass effect. There is no midline shift . There is no hydrocephalus. There is mild cerebral atrophy. The brainstem is intact. Corpus callosum appears normal. Sella turcica is normal. Contrast images show no pathologic enhancement. IMPRESSION: Moderate patchy abnormal increased signal in the periventricular white matter of both cerebral hemisp heres. I would consider both demyelinating disease and small vessel ischemia. I do not see evidence f or intracranial metastatic disease. There is noted minimal ethmoid sinusitis.
[2016-05-12 01:58] LABS: Glucose,Whole Blood 102 mg/dL (75-99)
[2016-05-12] MEDS: LACTATED RINGERS 1,000 ML IV SCH (06:19)
[2016-05-12 07:09] LABS: Glucose,Whole Blood 80 mg/dL (75-99)
[2016-05-12 07:42] VITALS: BP 183/139; PULSE 86; RESP 18; TEMP 98.3
[2016-05-12] MEDS: POLYETHYLENE GLYCOL 3350 17 GM POWD.PACK PO SCH (08:12)
[2016-05-12] MEDS: CARVEDILOL 12.5 MG TAB PO SCH (08:12)
[2016-05-12] MEDS: FAMOTIDINE 20 MG TAB PO SCH (08:12)
[2016-05-12] MEDS: METHADONE 10 MG TAB PO SCH (08:12)
[2016-05-12] MEDS: LIPASE 5,000/PROTEASE 17,000/AMYLASE 27,0000 PO SCH ×2 (08:12→12:45)
[2016-05-12] MEDS: DICYCLOMINE 10 MG CAP PO SCH (08:12)
[2016-05-12] MEDS: POTASSIUM CHLORIDE ER 20 MEQ TAB.ER PO SCH (08:12)
[2016-05-12] MEDS: NICOTINE 7MG/24HR PATCH TRANSDERM SCH (08:12)
[2016-05-12] MEDS: RIVAROXABAN 10 MG TAB PO SCH (08:13)
[2016-05-12] MEDS: MAGNESIUM OXIDE 400 MG TAB PO SCH (08:13)
[2016-05-12] MEDS: FERROUS SULFATE 325 MG TAB PO SCH (08:13)
--- NOTE | 2016-05-12 10:49 | DS ---
DATE OF ADMISSION: 05/08/2016 DATE OF DISCHARGE: The patient is admitted for pancreatic cancer and patient is treated for dehydration and metabolic encephalopathy secondary to dehydration. Patient is clinically doing, will be discharged today. Please refer to my discharge summary from yesterday for further details as patient did not end up going home yesterday. I saw and evaluated him today and vitals are stable. PHYSICAL EXAMINATION: GENERAL: The patient is alert and oriented x3, not in any acute distress. Well developed, well nourished. HEENT: Pupils are round and equally reacting to light. EOMI. No scleral icterus. No conjunctival pallor. Normocephalic, atraumatic. No pharyngeal erythema. No thyromegaly. CARDIOVASCULAR: S1 and S2 present. No murmurs, rubs, or gallops. PULMONARY: Chest is clear to auscultation, no wheezing or crackles. ABDOMEN: No change from yesterday. MUSCULOSKELETAL: No joint swelling or deformity. EXTREMITIES: No cyanosis, clubbing, or pedal edema. NEUROLOGICAL: Gross neurological examination did not reveal any focal deficits. SKIN: No rashes. For further details of discharge, please refer to my dictation from yesterday. We did get an MRI. MRI did not show any metastatic disease but did have some small vessel ischemic changes although multiple sclerosis is in differential. The patient is not the age for multiple sclerosis and patient does not have any signs or symptoms of multiple sclerosis. Patient is already on Xarelto because of which I did not start him on any aspirin.
[2016-05-12 11:57] LABS: Glucose,Whole Blood 101 mg/dL (75-99)
[2016-05-12] MEDS: CYANOCOBALAMIN 500 MCG TAB PO SCH (12:45)
[2016-05-15 09:53] LABS: Mis test requested (Blood) C-19
== END 2016-05-12 16:45 | disposition home or self-care (01) | DRG 640 ==
LOC: EC 13:10 → INTOOBSV 17:44 → 5ONC 17:44 → OBSVTOIN 17:44 → INTOOBSV 05-10 16:15 → OBSVTOIN 05-10 16:15
PROVIDERS: ADMIT Internal Medicine; ATTEND Internal Medicine
DX: E86.0 Dehydration (principal); D61.810 Antineoplastic chemotherapy induced pancytopenia; G93.41 Metabolic encephalopathy; E43 Unspecified severe protein-calorie malnutrition; K85.90 Acute pancreatitis without necrosis or infection, unspecified; C25.9 Malignant neoplasm of pancreas, unspecified; C78.6 Secondary malignant neoplasm of retroperitoneum and peritoneum; E11.9 Type 2 diabetes mellitus without complications; F17.210 Nicotine dependence, cigarettes, uncomplicated; G89.3 Neoplasm related pain (acute) (chronic); I10 Essential (primary) hypertension; J44.9 Chronic obstructive pulmonary disease, unspecified; T45.1X5A Adverse effect of antineoplastic and immunosuppressive drugs, initial encounter; Z66 Do not resuscitate; Z79.01 Long term (current) use of anticoagulants; Z79.891 Long term (current) use of opiate analgesic; Z86.718 Personal history of other venous thrombosis and embolism; Z88.0 Allergy status to penicillin; Z79.899 Other long term (current) drug therapy; Z88.5 Allergy status to narcotic agent
CPT/HCPCS: 36415; 70450; 70553; 71020; 80048; 80053; 82140; 82150; 82550; 82553; 83690; 83735; 85025; 85027; 85610; 85730; 86301; 86850; 86900; 86901; 87040; 93005; 96361; 96374; 99285

== ENCOUNTER 2016-05-21 22:39 | Inpatient (IN) | payer MEDICAID, MEDICARE ==
[2016-05-21] MEDS ORDERED: SODIUM CHLORIDE 0.9% 500 ML IV STA (22:52)
[2016-05-21] MEDS ORDERED: ONDANSETRON 4 MG/2 ML VIAL IVP STA (22:52)
[2016-05-21] MEDS ORDERED: ACETAMINOPHEN IV (For NPO) 1,000 MG in EMPTY BAG 1 BAG IVPB ONE (22:54)
[2016-05-21 23:57] LABS: Anisocytosis Marked; Basophils # (A) 0.1 k/uL (0-0.2); Basophils % (A) 0 %; CH 29.9; CHCM 33.5; Eosinophils # (A) 0.2 k/uL (0-0.7); Eosinophils % (A) 1 %; HDW 3.36; Luc % (Auto) 1; Lymphocytes # (A) 2.6 k/uL (1.0-4.8); Lymphocytes % (A) 9 %; MCH 29.4 pg (25.0-35.0); MCHC 32.4 g/dL (31.0-37.0); MCV 90.7 fL (80.0-100.0); Macrocytosis Moderate; Mean Platelet Volume 8.5; Monocytes # (A) 1.3 k/uL (0-1.0); Monocytes % (A) 5 %; Neutrophils # (A) 24.1 k/uL (1.3-7.7); Neutrophils % (A) 84 %; RBC 2.18 m/uL (4.30-5.90); WBC (Perox) 29.25
[2016-05-22 00:02] LABS: HCT 19.8 % (39.0-53.0); HGB 6.4 gm/dL (13.0-17.5); RDW 26.7 % (11.5-15.5); WBC 28.7 k/uL (3.8-10.6)
[2016-05-22 00:07] LABS: ALT 25 U/L (21-72); AST 38 U/L (17-59); Alkaline Phosphatase 100 U/L (38-126); Amylase 44 U/L (30-110); Anion Gap 8 mmol/L; Blood Urea Nitrogen 32 mg/dL (9-20); Calcium 8.2 mg/dL (8.4-10.2); Carbon Dioxide 22 mmol/L (22-30); Chloride 108 mmol/L (98-107); Glucose 93 mg/dL (74-99); Magnesium 1.7 mg/dL (1.6-2.3); Non-African American GFR(MDRD) >60 (>60 ml/min/1.73 sqM); Phosphorous 5.2 mg/dL (2.5-4.5); Potassium 4.4 mmol/L (3.5-5.1); Sodium 138 mmol/L (137-145); Total Bilirubin 0.6 mg/dL (0.2-1.3); Total Protein 6.2 g/dL (6.3-8.2)
[2016-05-22 00:11] LABS: Creatine Kinase 44 U/L (55-170)
[2016-05-22 00:12] LABS: INR 1.9 (<1.1); Prothrombin Time 17.9 sec (9.0-12.0)
--- NOTE | 2016-05-22 00:15 | ED ---
General Adult HPI - General Chief complaint: Weakness Stated complaint: low hemoglobin Time Seen by Provider: 05/21/16 22:41 Source: patient Mode of arrival: EMS Limitations: no limitations - History of Present Illness Initial comments: This 60-year-old -[place] male presents with via EMS with the complaint of some mental status changes. The states that he was very hard to arouse earlier today. He was also very weak. He may have had some abdominal pain as well as some nausea and vomiting. The relates that he had some blood in his stool earlier. This apparently was bright red blood. Patient is unsure she had any blood in his stool because he states he did not look. Overall, he is a very poor historian but the does give good history. She relates that he has a history of pancreatic cancer and receives chemotherapy through Dr. Head. She is thought of potentially placing him in hospice recently but has not done so as of yet. She called the doctor's office today and they had blood work completed which showed a hemoglobin at 6.2 which is down from 9.5 on 05/10/2016. His white count was also significantly elevated at 30,000. His platelets were low at 82. He was sent to the ER for further evaluation and treatment. - Related Data Home Medications Medication Instructions Recorded Confirmed Lipase/Protease/Amylase [Tiesha Kelly 1 cap PO AC-TID 01/28/16 05/21/16 12,000 Units Capsule] Carvedilol [Coreg] 12.5 mg PO BID@0800,1700 01/29/16 05/21/16 Methadone [Dolophine] 10 mg PO TID 01/29/16 05/21/16 Polyethylene Glycol 3350 [Miralax] 17 gm PO TID 01/29/16 05/21/16 Prochlorperazine [Compazine] 10 mg PO Q6H PRN 01/29/16 05/21/16 Verapamil HCl [Verapamil ER] 240 mg PO HS 01/29/16 05/21/16 Ondansetron [Zofran ODT] 8 mg PO Q12HR PRN 04/10/16 05/21/16 Cyanocobalamin [Vitamin B-12] 500 mcg PO DAILY 05/08/16 05/21/16 Ferrous Sulfate [Iron (65 MG 325 mg PO DAILY@0800 05/08/16 05/21/16 Elemental)] Magnesium Oxide [Mag-Ox] 400 mg PO DAILY 05/08/16 05/21/16 Omeprazole [PriLOSEC] 20 mg PO DAILY@0800 05/08/16 05/21/16 Rivaroxaban [Xarelto] 20 mg PO DAILY@0800 05/08/16 05/21/16 Previous Rx's Medication Instructions Recorded Dicyclomine [Bentyl] 10 mg PO TID #90 cap 02/02/16 Cholestyramine (with Sugar) 4 gm PO BID #30 packet 05/11/16 [Questran] Allergies Allergy/AdvReac Type Severity Reaction Status Date / Time Penicillins Allergy Rash/Hives Verified 05/21/16 23:00 rofecoxib [From Vioxx] Allergy Unknown Verified 05/21/16 23:00 NARCOTICS Allergy Unknown Uncoded 05/08/16 15:06 Review of Systems ROS Statement: Those systems with pertinent positive or pertinent negative responses have been documented in the HPI. ROS Other: All systems not noted in ROS Statement are negative. Past Medical History Past Medical History: Diabetes Mellitus, Deep Vein Thrombosis (DVT), Hypertension Additional Past Medical History / Comment(s): pancreatic cancer with mets to peritoneal lining and lungs; right leg dvt 03/02; History of Any Multi-Drug Resistant Organisms: None Reported Past Surgical History: No Surgical Hx Reported Additional Past Surgical History / Comment(s): right implanted port Past Anesthesia/Blood Transfusion Reactions: No Reported Reaction Past Psychological History: No Psychological Hx Reported Smoking Status: Current some day smoker Past Alcohol Use History: None Reported Past Drug Use History: None Reported - Past Family History Father Family Medical History: Unable to Obtain Mother Family Medical History: Unable to Obtain General Exam - General Exam Comments Initial Comments: GENERAL: The patient is well nourished and well hydrated. VITAL SIGNS: Heart rate, blood pressure, respiratory rate reviewed as recorded in nurse's notes. EYES: Pupils are round and reactive. Extraocular movements are intact. No conjunctival / lid redness or swelling. ENT: No external evidence of injury, swelling, or ecchymosis. Airway is patent. Throat is clear. NECK: Nontender. No swelling or evidence of injury. No subcutaneous emphysema. Trachea is midline. No thyroid mass. HEART: Regular rate and rhythm. Good peripheral pulses. Significant peripheral edema noted bilaterally. LUNGS/CHEST: Breath sounds clear and equal bilaterally. No rales, rhonchi, or wheezes. No ecchymosis, subcutaneous emphysema, or tenderness. ABDOMEN: There is mild midepigastric tenderness. No palpable masses or organomegaly. No peritoneal signs. No abdominal wall swelling or ecchymosis. EXTREMITIES: No extremity tenderness. Normal muscle tone and function. No thoracolumbar tenderness. NEUROLOGIC: Sensation is grossly intact. Cranial nerve exam reveals face is symmetrical, tongue is midline, speech is clear. SKIN: No abrasions or ecchymosis is noted. No induration or masses noted. PSYCHIATRIC: Alert and in no distress. Poor historian. Rectal exam: There is black stool noted on digital rectal examination. There is no bright red blood noted. Limitations: no limitations Course Vital Signs 05/21/16 22:40 Pulse Rate 96 Respiratory 20 Rate Blood Pressure 129/64 O2 Sat by Pulse 100 Oximetry Medical Decision Making - Medical Decision Making The patient was seen and examined. All diagnostics were reviewed. An EKG was done which shows a normal sinus rhythm at a rate of 82. There is no acute ST-T wave changes noted other than some slight T-wave inversions in 3 and aVF. The IN interval is 124, QRS duration is 82 and QTC intervals 448. The patient appears very anemic and also has a significant leukocytosis. The Hemoccult is positive. The patient is on Xarelto as he is diagnosed with large lower extremity DVTs 3 months ago at [facility]. The exact cause of the leukocytosis is undetermined. His chest x-ray does not show any evidence of pneumonia or acute process. He is unable to urinate thus far. Levaquin is initiated intravenously. Overall, it appears that he has a GI bleed and is given some Protonix intravenously. He is given some Ofirmev for his abdominal pain. He is in no significant distress on recheck. It is felt as though he would require admission to the hospital for further treatment with GI and oncology to consult. The case will be discussed with internal medicine in the near future. CODE STATUS was discussed with the patient and the family. They do want to continue with treatment but both patient and do not want any resuscitation efforts. Overall, it is felt as though he is a very poor prognosis. They relate that he was diagnosed with the pancreatic cancer approximately 7 months ago. Approximately 30 minutes of critical care time was utilized and the treatment of the patient and he'll be admitted to the intensive care unit. - Lab Data Result diagrams: 05/21/16 23:45 05/21/16 23:45 Lab Results 05/21/16 05/21/16 05/21/16 Range/Units 00:00 23:45 23:45 WBC 28.7 H* (3.8-10.6) k/uL RBC 2.18 L (4.30-5.90) m/uL Hgb 6.4 L* (13.0-17.5) gm/dL Hct 19.8 L* (39.0-53.0) % MCV 90.7 (80.0-100.0) fL MCH 29.4 (25.0-35.0) pg MCHC 32.4 (31.0-37.0) g/dL RDW 26.7 H (11.5-15.5) % Plt Count 285 (150-450) k/uL Neutrophils % 84 % Lymphocytes % 9 % Monocytes % 5 % Eosinophils % 1 % Basophils % 0 % Neutrophils # 24.1 H (1.3-7.7) k/uL Lymphocytes # 2.6 (1.0-4.8) k/uL Monocytes # 1.3 H (0-1.0) k/uL Eosinophils # 0.2 (0-0.7) k/uL Basophils # 0.1 (0-0.2) k/uL Anisocytosis Marked Macrocytosis Moderate PT (9.0-12.0) sec INR (<1.1) APTT (22.0-30.0) sec Sodium (137-145) mmol/L Potassium (3.5-5.1) mmol/L Chloride (98-107) mmol/L Carbon Dioxide (22-30) mmol/L Anion Gap mmol/L BUN (9-20) mg/dL Creatinine (0.66-1.25) mg/dL Est GFR (MDRD) Af Amer (>60 ml/min/1.73 sqM) Est GFR (MDRD) Non-Af (>60 ml/min/1.73 sqM) Glucose (74-99) mg/dL Calcium (8.4-10.2) mg/dL Phosphorus (2.5-4.5) mg/dL Magnesium (1.6-2.3) mg/dL Total Bilirubin (0.2-1.3) mg/dL AST (17-59) U/L ALT (21-72) U/L Alkaline Phosphatase (38-126) U/L Total Creatine Kinase 44 L (55-170) U/L CK-MB (CK-2) 0.6 (0.0-2.4) ng/mL CK-MB (CK-2) Rel Index 1.4 Troponin I <0.012 (0.000-0.034) ng/mL Total Protein (6.3-8.2) g/dL Albumin (3.5-5.0) g/dL Amylase (30-110) U/L Lipase (23-300) U/L Stool Occult Blood Positive (Negative) Blood Type Blood Type Recheck Antibody Screen Spec Expiration Date 05/21/16 05/21/16 05/21/16 Range/Units 23:45 23:45 23:45 WBC (3.8-10.6) k/uL RBC (4.30-5.90) m/uL Hgb (13.0-17.5) gm/dL Hct (39.0-53.0) % MCV (80.0-100.0) fL MCH (25.0-35.0) pg MCHC (31.0-37.0) g/dL RDW (11.5-15.5) % Plt Count (150-450) k/uL Neutrophils % % Lymphocytes % % Monocytes % % Eosinophils % % Basophils % % Neutrophils # (1.3-7.7) k/uL Lymphocytes # (1.0-4.8) k/uL Monocytes # (0-1.0) k/uL Eosinophils # (0-0.7) k/uL Basophils # (0-0.2) k/uL Anisocytosis Macrocytosis PT 17.9 H (9.0-12.0) sec INR 1.9 (<1.1) APTT 29.0 (22.0-30.0) sec Sodium 138 (137-145) mmol/L Potassium 4.4 (3.5-5.1) mmol/L Chloride 108 H (98-107) mmol/L Carbon Dioxide 22 (22-30) mmol/L Anion Gap 8 mmol/L BUN 32 H (9-20) mg/dL Creatinine 0.91 (0.66-1.25) mg/dL Est GFR (MDRD) Af Amer >60 (>60 ml/min/1.73 sqM) Est GFR (MDRD) Non-Af >60 (>60 ml/min/1.73 sqM) Glucose 93 (74-99) mg/dL Calcium 8.2 L (8.4-10.2) mg/dL Phosphorus 5.2 H (2.5-4.5) mg/dL Magnesium 1.7 (1.6-2.3) mg/dL Total Bilirubin 0.6 (0.2-1.3) mg/dL AST 38 (17-59) U/L ALT 25 (21-72) U/L Alkaline Phosphatase 100 (38-126) U/L Total Creatine Kinase (55-170) U/L CK-MB (CK-2) (0.0-2.4) ng/mL CK-MB (CK-2) Rel Index Troponin I (0.000-0.034) ng/mL Total Protein 6.2 L (6.3-8.2) g/dL Albumin 2.2 L (3.5-5.0) g/dL Amylase 44 (30-110) U/L Lipase 18 L (23-300) U/L Stool Occult Blood (Negative) Blood Type O Positive Blood Type Recheck No Antibody Screen NEGATIVE Spec Expiration Date 05/24/2016 - 2344 Disposition Clinical Impression: Abdominal pain, Pancreatic cancer, Anemia, Leukocytosis, Gastrointestinal bleed , Lower extremity edema, Acute encephalopathy, Nausea and vomiting Disposition: ADMITTED IP TO THIS [facility] Condition: Poor Time of Disposition: 00:33 Decision Date: 05/22/16 Decision Time: 00:34
[2016-05-22] MEDS ORDERED: LEVOFLOXACIN 750MG-D5W PMX 750 MG in DEXTROSE/WATER 1 150ML.BAG IVPB STA (00:16)
[2016-05-22 00:24] LABS: Creatine Kinase MB 0.6 ng/mL (0.0-2.4); Troponin I <0.012 ng/mL (0.000-0.034)
[2016-05-22] MEDS ORDERED: NALOXONE 0.4 MG/ML 1 ML VIAL IV PRN (00:35)
[2016-05-22] MEDS ORDERED: ACETAMINOPHEN TAB 325 MG TAB PO PRN (00:35)
[2016-05-22] MEDS ORDERED: PROCHLORPERAZINE 10 MG TAB PO PRN (00:39)
--- NOTE | 2016-05-22 01:04 | XR ---
EXAM: XR Chest, 1 View. CLINICAL HISTORY: Pain. TECHNIQUE: Frontal view of the chest. COMPARISON: Chest radiograph dated 05/08/16. FINDINGS: Lungs: Mild prominence of lung markings without focal consolidation. There is subtle nodularity at the left lung base, which may be related to scarring. Pleural space: No significant pleural effusion. No pneumothorax. Heart: Normal cardiac silhouette. Mediastinum: Unremarkable. Bones/joints: Degenerative changes at the right acromioclavicular joint. Tubes, lines and devices: Well-positioned right chest Port-A-Cath. IMPRESSION: 1. No airspace consolidation. 2. Subtle nodularity at the left lung base, which may be related to scarring. Attention on follow-up.
[2016-05-22 01:36] LABS: Glucose,Whole Blood 91 mg/dL (75-99)
[2016-05-22 02:06] VITALS: BMI 19.0
[2016-05-22] MEDS: PANTOPRAZOLE 40 MG/10 ML VIAL IVP SCH ×3 (02:13→20:49)
[2016-05-22] MEDS: ONDANSETRON 4 MG/2 ML VIAL IVP PRN (03:10)
[2016-05-22 06:17] LABS: Appearance,Urine Clear (Clear); Bilirubin,Urine 1+ (Negative); Glucose,Urine (UA) Negative (Negative); Ketones,Urine Negative (Negative); Leukocyte Esterase,Urine Negative (Negative); Nitrite,Urine Negative (Negative); PH, Urine 5.5 (5.0-8.0); Protein,Urine Trace (Negative); Specific Gravity,Urine 1.019 (1.001-1.035); UA Billing (MACRO vs. MICRO) CHEM; Urobilinogen,Urine <2.0 mg/dL (<2.0)
[2016-05-22] MEDS: SODIUM CHLORIDE 0.9% 1,000 ML IV SCH (06:26)
[2016-05-22 07:29] LABS: Glucose,Whole Blood 129 mg/dL (75-99)
[2016-05-22] MEDS: LIPASE 5,000/PROTEASE 17,000/AMYLASE 27,0000 PO SCH ×3 (09:13→16:12)
[2016-05-22] MEDS: POLYETHYLENE GLYCOL 3350 17 GM POWD.PACK PO SCH ×3 (09:14→20:50)
[2016-05-22] MEDS: METHADONE 10 MG TAB PO SCH ×3 (09:15→20:49)
[2016-05-22] MEDS: CYANOCOBALAMIN 500 MCG TAB PO SCH (09:16)
[2016-05-22] MEDS: DICYCLOMINE 10 MG CAP PO SCH ×3 (09:16→20:49)
[2016-05-22] MEDS: MAGNESIUM OXIDE 400 MG TAB PO SCH (09:16)
[2016-05-22] MEDS: CARVEDILOL 12.5 MG TAB PO SCH ×2 (09:16→16:12)
[2016-05-22] MEDS: FERROUS SULFATE 325 MG TAB PO SCH (09:16)
[2016-05-22] MEDS: CHOLESTYRAMINE (WITH SUGAR) 4 GM PACKET PO SCH ×2 (09:16→20:49)
--- NOTE | 2016-05-22 10:22 | P.CONS ---
History of Present Illness - Reason for Consult Consult date: 05/22/16 GI bleed Requesting physician: Arlen Bravo - History of Present Illness 60-year-old gentleman history of metastatic pancreatic carcinoma recent chemotherapy, ascites with paracentesis, pneumonia, diabetes, COPD, DVT on Xarelto, chronic pain, hypertension, protein calorie malnutrition, and pancytopenia from chemotherapy. He presents with mental status changes, abdominal discomfort, nausea, vomiting. Patient is a poor historian medical history obtained from nursing staff and medical records. Apparently there was red blood seen in the patient's stool per his . There was recently discussion about possible hospice planning. Hemoglobin 6.4. MCV 90. Platelet 285. INR 1.9. BUN 32. Creatinine 0.9. Unsure if patient has had a colonoscopy or EGD recently. Received 2 units of blood and repeat CBC is pending. Previous hemoglobin between 8.8-9.6 over the last month. Hemoccult stool positive. Ammonia 53. Total bilirubin 0.6. AST 30. ALT 25. Alkaline phosphatase 100. Review of Systems Obtained from medical records and nursing staff Constitutional: Denies fever, chills, sweats, weight gain, or loss. HEENT: Negative for migraines, blurred vision or loss, earaches, drainage, tinnitus, oral mucosal lesions, dysphagia, or odynophagia. Cardiac: Hypertension. Cigarette dependency. Negative for chest pain, arrhythmias, or palpitation. Respiratory: Negative for shortness of breath, hemoptysis, cough, or sputum production. Gastrointestinal: See HPI for pertinent findings. Genitourinary: Negative for hematuria, urgency, frequency, polyuria, dysuria, or penile discharge. Musculoskeletal: Negative for muscle aches, swelling, arthritis, and arthralgias. Neurologic: Negative for stroke or TIA. Endocrine: Diabetes mellitus. Negative for thyroid problems. Skin: Negative for rash or itching. Hematologic: DVT. Psychiatric: Negative history for depression and anxiety ROS unobtainable: due to mental status All systems: negative (See HPI) Past Medical History Past Medical History: Diabetes Mellitus, Deep Vein Thrombosis (DVT), Hypertension Additional Past Medical History / Comment(s): pancreatic cancer with mets to peritoneal lining and lungs; right leg dvt 03/02; History of Any Multi-Drug Resistant Organisms: None Reported Past Surgical History: No Surgical Hx Reported Additional Past Surgical History / Comment(s): right implanted port Past Anesthesia/Blood Transfusion Reactions: No Reported Reaction Past Psychological History: No Psychological Hx Reported Smoking Status: Current some day smoker Past Alcohol Use History: None Reported Past Drug Use History: None Reported - Past Family History Father Family Medical History: Unable to Obtain Mother Family Medical History: Unable to Obtain Medications and Allergies Home Medications Medication Instructions Recorded Confirmed Type Lipase/Protease/Amylase [Tiesha Kelly 1 cap PO AC-TID 01/28/16 05/21/16 History 12,000 Units Capsule] Carvedilol [Coreg] 12.5 mg PO BID@0800,1700 01/29/16 05/21/16 History Methadone [Dolophine] 10 mg PO TID 01/29/16 05/21/16 History Polyethylene Glycol 3350 [Miralax] 17 gm PO TID 01/29/16 05/21/16 History Prochlorperazine [Compazine] 10 mg PO Q6H PRN 01/29/16 05/21/16 History Verapamil HCl [Verapamil ER] 240 mg PO HS 01/29/16 05/21/16 History Ondansetron [Zofran ODT] 8 mg PO Q12HR PRN 04/10/16 05/21/16 History Cyanocobalamin [Vitamin B-12] 500 mcg PO DAILY 05/08/16 05/21/16 History Ferrous Sulfate [Iron (65 MG 325 mg PO DAILY@0800 05/08/16 05/21/16 History Elemental)] Magnesium Oxide [Mag-Ox] 400 mg PO DAILY 05/08/16 05/21/16 History Omeprazole [PriLOSEC] 20 mg PO DAILY@0800 05/08/16 05/21/16 History Rivaroxaban [Xarelto] 20 mg PO DAILY@0800 05/08/16 05/21/16 History Allergies Allergy/AdvReac Type Severity Reaction Status Date / Time Penicillins Allergy Rash/Hives Verified 05/21/16 23:00 rofecoxib [From Vioxx] Allergy Unknown Verified 05/21/16 23:00 NARCOTICS Allergy Unknown Uncoded 05/08/16 15:06 Physical Exam Vitals: Vital Signs Temp Pulse Resp BP Pulse Ox 05/22/16 10:00 82 16 124/84 96 05/22/16 09:00 97.5 F L 91 16 129/74 99 05/22/16 08:00 81 16 145/94 95 05/22/16 07:39 84 14 145/94 100 05/22/16 07:00 94 13 127/91 97 05/22/16 06:15 107 H 18 97 05/22/16 06:00 115 H 33 H 113/79 93 L 05/22/16 05:45 108 H 18 113/79 99 05/22/16 05:35 97.7 F 90 18 113/79 99 05/22/16 05:30 97.7 F 92 18 104/62 98 05/22/16 05:00 91 14 95/63 100 05/22/16 04:00 97.7 F 92 9 L 100/68 99 05/22/16 03:47 90 10 L 96/57 98 05/22/16 03:17 97.7 F 93 14 94/57 99 05/22/16 03:07 97.6 F 101 H 16 105/51 100 05/22/16 03:00 105 H 16 105/51 99 05/22/16 02:00 89 14 122/64 100 05/22/16 01:11 97 F L 85 18 106/66 100 Intake and Output 05/21/16 05/22/16 05/22/16 22:59 06:59 14:59 Intake Total 920 370 Output Total 650 100 Balance 270 270 Intake: IV 610 Levofloxacin 750Mg-D5w 150 Pmx 750 mg In Dextrose/ Water 1 150ml.bag @ 100 mls/hr IVPB ONCE STA Rx#: [id number] PRBC 460 Intake, IV Titration 60 Amount Sodium Chloride 0.9% 1, 60 000 ml @ 20 mls/hr IV . Q24H [facility] Rx#:[id number] Blood Product 310 310 Rc Pheresis 2 As3 Unit 0 310 [id number] Rc Pheresis 2 As3 Unit 310 [id number] Output: Urine 650 100 Other: Voiding Method Urinal Indwelling Catheter # Voids 0 Weight 63.5 kg 63.5 kg Patient Weight 05/23/16 06:59 Weight 63.5 kg General appearance: The patient is alert, oriented, in no acute distress. Appears weak. Pale conjunctiva. Overall thin appearance cachectic. HET: Head is normocephalic and atraumatic. Pupils are equal and reactive. Oropharynx is clear without lesions. Neck: Supple without lymphadenopathy. Trachea midline. Heart: S1 S2. Lungs: No crackles or wheezes are heard. Abdomen: Soft, mild midepigastric tenderness, nondistended with bowel sounds. No peritoneal signs. No palpable organomegaly or masses. Extremities: Normal skin color and turgor. No cyanosis, rash, ulceration, clubbing, or edema. Radial and pedal pulses are 2/4 bilaterally. Neurological: No focal deficits. Strength and sensation are grossly intact. Results CBC & Chem 7: 05/21/16 23:45 05/21/16 23:45 Labs: Abnormal Lab Results - Last 24 Hours (Table) 05/22/16 05/22/16 Range/Units 05:55 07:28 POC Glucose (mg/dL) 129 H (75-99) mg/dL Urine Protein Trace H (Negative) Urine Bilirubin 1+ H (Negative) Assessment and Plan (1) Gastrointestinal bleed Status: Acute (2) Acute blood loss anemia Status: Acute (3) Metastasis from pancreatic cancer Status: Acute (4) Pancytopenia due to antineoplastic chemotherapy Status: Acute (5) History of DVT (deep vein thrombosis) Status: Acute (6) Serum ammonia increased Narrative/Plan: Suspect metabolic encephalopathy Status: Acute Plan: 1. Will discuss workup of GI bleed with ; not sure if she wants to pursue endoscopic evaluations at this time. He should appears very weak and unsure if he is able to tolerate a bowel prep. Case was also discussed with Dr. Bravo. He agrees to continue supportive measures GI prophylaxis and monitoring of CBC closely. Transfusion as necessary. Further recommendations forthcoming after discussion with patient's who was not present at time of this dictation. Thank you for this kind referral and the opportunity to participate in the care of your patient. This consultation was discussed with Dr. Sommer. The impression and plan of care have been directed as dictated.
--- NOTE | 2016-05-22 10:34 | P.CNPUL ---
History of Present Illness Consult date: 05/22/16 Reason for consult: other Chief complaint: GI bleed, anemia History of present illness: This is a 60-year-old black male with a history of follow-up mental status changes. He was evaluated emergency room. He was found to be anemic. The patient sees a number different doctors including an oncologist. Has a previous no CODE STATUS. He has a history of pancreatic cancer with metastasis. Here in he's received 2 units of PRBCs. He was admitted on the seventh. His IV is 0.9 at 20. No supplemental oxygen. He is a DO NOT RESUSCITATE. The nurse here in the ICU is a 20 gauze. We discussed the case. I'm reading from the ER aditya states the patient had some blood work done which showed a hemoglobin of 6.2. His repeat is pending. Review of Systems The review of systems is not really great. The patient is a very poor historian. I mostly get weakness from him. His appetite is poor. No fever no chills. No significant pain. Past Medical History Past Medical History: Diabetes Mellitus, Deep Vein Thrombosis (DVT), Hypertension Additional Past Medical History / Comment(s): pancreatic cancer with mets to peritoneal lining and lungs; right leg dvt 03/02; History of Any Multi-Drug Resistant Organisms: None Reported Past Surgical History: No Surgical Hx Reported Additional Past Surgical History / Comment(s): right implanted port Past Anesthesia/Blood Transfusion Reactions: No Reported Reaction Past Psychological History: No Psychological Hx Reported Smoking Status: Current some day smoker Past Alcohol Use History: None Reported Past Drug Use History: None Reported - Past Family History Father Family Medical History: Unable to Obtain Mother Family Medical History: Unable to Obtain Medications and Allergies Home Medications Medication Instructions Recorded Confirmed Type Lipase/Protease/Amylase [Tiesha Kelly 1 cap PO AC-TID 01/28/16 05/21/16 History 12,000 Units Capsule] Carvedilol [Coreg] 12.5 mg PO BID@0800,1700 01/29/16 05/21/16 History Methadone [Dolophine] 10 mg PO TID 01/29/16 05/21/16 History Polyethylene Glycol 3350 [Miralax] 17 gm PO TID 01/29/16 05/21/16 History Prochlorperazine [Compazine] 10 mg PO Q6H PRN 01/29/16 05/21/16 History Verapamil HCl [Verapamil ER] 240 mg PO HS 01/29/16 05/21/16 History Ondansetron [Zofran ODT] 8 mg PO Q12HR PRN 04/10/16 05/21/16 History Cyanocobalamin [Vitamin B-12] 500 mcg PO DAILY 05/08/16 05/21/16 History Ferrous Sulfate [Iron (65 MG 325 mg PO DAILY@0800 05/08/16 05/21/16 History Elemental)] Magnesium Oxide [Mag-Ox] 400 mg PO DAILY 05/08/16 05/21/16 History Omeprazole [PriLOSEC] 20 mg PO DAILY@0800 05/08/16 05/21/16 History Rivaroxaban [Xarelto] 20 mg PO DAILY@0805/08/16 05/21/16 History Allergies Allergy/AdvReac Type Severity Reaction Status Date / Time Penicillins Allergy Rash/Hives Verified 05/21/16 23:00 rofecoxib [From Vioxx] Allergy Unknown Verified 05/21/16 23:00 NARCOTICS Allergy Unknown Uncoded 05/08/16 15:06 Physical Exam Osteopathic Statement: *. No significant issues noted on an osteopathic structural exam other than those noted in the History and Physical/Consult. Vitals: Vital Signs Temp Pulse Resp BP Pulse Ox 05/22/16 10:00 82 16 124/84 96 05/22/16 09:00 97.5 F L 91 16 129/74 99 05/22/16 08:00 81 16 145/94 95 05/22/16 07:39 84 14 145/94 100 05/22/16 07:00 94 13 127/91 97 05/22/16 06:15 107 H 18 97 05/22/16 06:00 115 H 33 H 113/79 93 L 05/22/16 05:45 108 H 18 113/79 99 05/22/16 05:35 97.7 F 90 18 113/79 99 05/22/16 05:30 97.7 F 92 18 104/62 98 05/22/16 05:00 91 14 95/63 100 05/22/16 04:00 97.7 F 92 9 L 100/68 99 05/22/16 03:47 90 10 L 96/57 98 05/22/16 03:17 97.7 F 93 14 94/57 99 05/22/16 03:07 97.6 F 101 H 16 105/51 100 05/22/16 03:00 105 H 16 105/51 99 05/22/16 02:00 89 14 122/64 100 05/22/16 01:11 97 F L 85 18 106/66 100 Intake and Output 05/21/16 05/22/16 05/22/16 22:59 06:59 14:59 Intake Total 920 370 Output Total 650 100 Balance 270 270 Intake: IV 610 Levofloxacin 750Mg-D5w 150 Pmx 750 mg In Dextrose/ Water 1 150ml.bag @ 100 mls/hr IVPB ONCE STA Rx#: [id number] PRBC 460 Intake, IV Titration 60 Amount Sodium Chloride 0.9% 1, 60 000 ml @ 20 mls/hr IV . Q24H [facility] Rx#:[id number] Blood Product 310 310 Rc Pheresis 2 As3 Unit 0 310 [id number] Rc Pheresis 2 As3 Unit 310 [id number] Output: Urine 650 100 Other: Voiding Method Urinal Indwelling Catheter # Voids 0 Weight 63.5 kg 63.5 kg Patient Weight 05/23/16 06:59 Weight 63.5 kg No acute distress, oriented 3. He is very sleepy though. HEENT examination is grossly unremarkable. Mucous membranes are dry Neck supple. Full range of motion. No adenopathy. Cardio vascular examination reveals regular rhythm rate. S1-S2 normal. Lungs reveal few scattered rhonchi. Does not take deep breaths. No wheezes. Abdomen soft bowel sounds are heard. Extremities are intact. Results - Laboratory Findings CBC and BMP: 05/21/16 23:45 05/21/16 23:45 PT/INR, D-dimer PT 17.9 sec (9.0-12.0) H 05/21/16 23:45 INR 1.9 (<1.1) 05/21/16 23:45 Abnormal lab findings: Abnormal Labs 05/22/16 05/22/16 05:55 07:28 POC Glucose (mg/dL) 129 H Urine Protein Trace H Urine Bilirubin 1+ H - Diagnostic Findings Chest x-ray: image reviewed (Labs x-rays a medications are all reviewed.) Assessment and Plan (1) Acute blood loss anemia Status: Acute (2) Acute encephalopathy Status: Acute (3) Gastrointestinal bleed Status: Acute (4) History of DVT (deep vein thrombosis) Status: Acute (5) Metastasis from pancreatic cancer Status: Acute (6) Pancreatic cancer Status: Acute (7) Serum ammonia increased Status: Acute (8) Pancytopenia due to antineoplastic chemotherapy Status: Acute Plan: Plan The patient is stable from my perspective. He is a DO NOT RESUSCITATE. No active bleeding. Strong consideration should be given to given to palliative care or hospice referral. His recommendations suggestions are forthcoming. Again prognosis is very poor. We are going to try to find him a bed on oncology or general medical floor. Time with Patient: Greater than 30
[2016-05-22 10:37] LABS: ALT 22 U/L (21-72); AST 36 U/L (17-59); Alkaline Phosphatase 98 U/L (38-126); Anion Gap 9 mmol/L; Blood Urea Nitrogen 30 mg/dL (9-20); Calcium 8.3 mg/dL (8.4-10.2); Carbon Dioxide 23 mmol/L (22-30); Chloride 109 mmol/L (98-107); Glucose 101 mg/dL (74-99); Magnesium 1.7 mg/dL (1.6-2.3); Non-African American GFR(MDRD) >60 (>60 ml/min/1.73 sqM); Phosphorous 4.6 mg/dL (2.5-4.5); Potassium 4.2 mmol/L (3.5-5.1); Sodium 141 mmol/L (137-145); Total Bilirubin 0.7 mg/dL (0.2-1.3); Total Protein 6.2 g/dL (6.3-8.2)
[2016-05-22 10:43] LABS: Anisocytosis Moderate; Basophils # (A) 0.1 k/uL (0-0.2); Basophils % (A) 0 %; CH 29.9; CHCM 33.9; Eosinophils % (A) 0 %; HCT 25.5 % (39.0-53.0); HDW 3.86; Luc # (Auto) 0.29; Luc % (Auto) 1; Lymphocytes # (A) 1.8 k/uL (1.0-4.8); Lymphocytes % (A) 7 %; MCH 29.4 pg (25.0-35.0); MCHC 32.9 g/dL (31.0-37.0); MCV 89.5 fL (80.0-100.0); Macrocytosis Slight; Mean Platelet Volume 8.1; Monocytes # (A) 0.9 k/uL (0-1.0); Monocytes % (A) 4 %; Neutrophils # (A) 23.8 k/uL (1.3-7.7); Neutrophils % (A) 88 %; Poikilocytosis Slight; RBC 2.85 m/uL (4.30-5.90); RDW 23.9 % (11.5-15.5)
[2016-05-22 10:51] LABS: HGB 8.4 gm/dL (13.0-17.5)
[2016-05-22 11:07] LABS: Manual Review Performed
[2016-05-22 11:09] LABS: Polychromasia Present
[2016-05-22 11:11] LABS: Reactive Lymphocytes Present
[2016-05-22] MEDS: MAGNESIUM SULFATE-D5W PMX 1 GM in DEXTROSE/WATER 1 100ML.BAG IVPB SCH ×2 (11:53→13:04)
[2016-05-22 12:08] LABS: Glucose,Whole Blood 103 mg/dL (75-99)
[2016-05-22 18:01] LABS: Glucose,Whole Blood 140 mg/dL (75-99)
[2016-05-22 20:22] LABS: Glucose,Whole Blood 130 mg/dL (75-99)
[2016-05-22] MEDS: VERAPAMIL SR 240 MG TABLET.ER PO SCH (20:49)
--- NOTE | 2016-05-22 21:48 | HP ---
DATE OF ADMISSION: 05/22/2016 Patient is well known to me from his previous hospitalization. Patient has metastatic pancreatic cancer. Patient is undergoing palliative chemotherapy for metastatic pancreatic cancer. Patient ( ) also and severe protein-calorie malnutrition. Patient is ( ) pretty weak. Patient's was unable to wake him up a couple days ago, and even yesterday patient was more drowsy. Patient is on multiple narcotic medications. Patient had bright red blood seen in the stool by his . Patient was brought in here because of that. Patient is on Xarelto for DVT. Patient's platelet count, although, is within normal limits. Patient received 2 units of blood transfusion. Patient did not have any blood in the stools today. Ammonia is elevated to 53. This is a nonspecific elevation. Patient never had any liver disease. Patient's abdomen is distended, malnourished. Patient is able to provide me history. I had extensive discussion with the patient regarding overall course of care. Patient is able to understand at this point of time. Patient I believe can make his own decisions. I had extensive discussion with the patient regarding hospice, and patient and his are leaning towards hospice. Patient has severe leukocytosis of 26,000 WBC count without any source of infection. Patient does not have UTI. The UA is essentially within normal limits. Chest x-ray did not show a pneumonic process. Patient does not have any diarrhea. His leukocytosis is probably because of the cancer itself. Patient has abdominal distention from cancer and continued abdominal pain. REVIEW OF SYSTEMS: CONSTITUTIONAL: No fever, no malaise, no fatigue. HEENT: No recent visual problems or hearing problems. Denied any sore throat. CARDIOVASCULAR: No chest pain, orthopnea, PND, no palpitations, no syncope. PULMONARY: No shortness of breath, no cough, no hemoptysis. GASTROINTESTINAL: As described in HPI. NEUROLOGICAL: No headaches, no weakness, no numbness. HEMATOLOGICAL: Denies any bleeding or petechiae. GENITOURINARY: Denies any burning micturition, frequency, or urgency. MUSCULOSKELETAL/RHEUMATOLOGICAL: Denies any joint pain, swelling, or any muscle pain. ENDOCRINE: Denies any polyuria or polydipsia. The rest of the 14 point review of systems is negative. PAST MEDICAL HISTORY: 1. Diabetes mellitus. 2. DVT in the past. 3. Hypertension. 4. Pancreatic cancer, metastatic. SOCIAL HISTORY: Patient used to smoke in the past. Denied any alcohol abuse or any drug abuse. FAMILY HISTORY: Not available ( ) Home medications include: 1. Lipase/Protease/Amylase. 2. Coreg. 3. Methadone. 4. Polyethylene glycol. 5. Compazine. 6. Verapamil. 7. Ondansetron. 8. Cyanocobalamin. 9. Ferrous sulfate. 10. Magnesium oxide. 11. Omeprazole. 12. Rivaroxaban. ALLERGIES: 1. PENICILLIN. 2. ROFECOXIB. 3. NARCOTICS. PHYSICAL EXAMINATION: VITAL SIGNS: Temperature 97.5, pulse of 82, respiratory rate of 16, blood pressure 124/84. Saturating 96% on room air. GENERAL: Patient is ( ) sleepy, although he is ( ) arousable. Oriented x2 to 3, which is his baseline. HEENT: Pupils are round and equally reacting to light. EOMI. No scleral icterus. No conjunctival pallor. Normocephalic, atraumatic. No pharyngeal erythema. No thyromegaly. CARDIOVASCULAR: S1 and S2 present. No murmurs, rubs, or gallops. PULMONARY: Chest is clear to auscultation, no wheezing or crackles. ABDOMEN: Distended with peritoneal metastases. No rebound or rigidity. MUSCULOSKELETAL: No joint swelling or deformity. EXTREMITIES: No cyanosis, clubbing, or pedal edema. NEUROLOGICAL: Gross neurological examination did not reveal any focal deficits. SKIN: No rashes. LABORATORY DATA: CBC and CMP are abnormal for elevated WBC count of 28,700, hemoglobin of 6.4. Platelet count 284,000. Hematocrit 19.8. Chloride is 108. ASSESSMENT AND PLAN: 1. Acute lower gastrointestinal bleed. Patient is on Xarelto. Gastroenterology evaluated the patient. Xarelto is being stopped at this point of time. 2. Metastatic pancreatic cancer. 3. Deep venous thrombosis. 4. Leukocytosis without any source of infection that was clearly identified. 5. Elevated serum ammonia. PLAN: Continue with IV fluids. Continue with lactulose for ammonia. ( ) because of which we are not going to do any further intervention. Will continue his home medications, pain medications, comfort being the main goal. Regarding leukocytosis, ( ) patient will not be started on any antibiotics yet. Patient mostly will be hospice. Hospice will be actually consulted. Dr. Head will evaluate the patient as well.
[2016-05-22] MEDS ORDERED: MORPHINE SULFATE 2 MG/ML SYRINGE IVP PRN (22:45)
--- NOTE | 2016-05-22 23:24 | P.CONS ---
History of Present Illness - Reason for Consult Consult date: 05/22/16 GI bleed and severe anemia. Metastatic pancreatic cancer - History of Present Illness Mr Sagastume is a pleasant AAM, initially seen in consult at [facility] on 02/18/16. He had developed abdominal pain, with decreased appetite and weight loss, since the late spring. He had CT scans in 08/31 with no specific findings other than a rt lung sub cm nodule. He had a PET on 09/17/15, which was read as indeterminate in the lung nodule with no other suspicious findings mentioned. A hypodensity was seen in the right lobe of the liver ( 2 cm), which was difficult to evaluate due to heteogeneity of the parenchyma. F/U CT chest on revealed abnormal soft tissue involving the tail of the pancreas, measuring 7.8 x 5.6 cm. The PET scan, in retrospect was felt to show abnormal uptake in this region, per an addendum. He was referred to [facility] and had a FNA on 12/30/15 revealing adeno ca. Initial Ca 19-9 was in the 2500 range, and then increased into the 5000 range. He was seen by Dr Brambila at [facility], and started on Gemzar/Abraxane. He had a delay after D1, C1 due to pneumonia. He had the D8 dose on 02/13/16. He was then admitted to [facility] on 02/17/16 with an extensive RLE DVT and progressive ascites. He was treated with IV heparin, and had a paracentesis, with cytology positive. CTA that admission also showed multiple lung nodules , c/w metastases. He was then discharged on Lovenox. He resumed chemo on 03/15/16 , given as D1C2. He was seen for his 1st OV on , as he wanted to transfer his care here. He was continued on chemo. He is s/p 3 cycles, with dose delayed and reduced for cycle 3 due to side effects. Most recent treatment was on 05/03/16 ( D15 C3) He was brought to the ER on 05/08/16 as he had been very lethargic and confused over the past 2-3 days, with progressive symptoms. PO intake had been quite poor. He had an extensive workup, which was negative for any evidence of infection. MRI of the brain was also negative. He improved partially with the supportive treatment, mostly hydration. CA 19-9 was done at the time of discharge, on 05/11/16, and showed a further response, with decline down to 453. The patient was discharged home, and it was decided to delay cycle #4 and further dose reduce. Per his , the patient's appetite did improve. However generalized weakness persisted and the patient overall remained quite lethargic. On 05/21/16, she had called office stating that he was more lethargic than before. Therefore labs were ordered, which showed a hemoglobin of 6.4. She was contacted at home and asked to bring the patient into the hospital. She stated that he had been having episodes of bleeding per rectum over the last few days. Patient to the ER, hemoglobin was 6.2. The patient was therefore admitted to the ICU. He status post 2 units of blood. Consult was placed for further evaluation and recommendations. Review of Systems Constitutional: Reports chronic pain, Reports fatigue, Reports lethargy, Reports poor appetite, Reports weakness, Reports weight loss Eyes: denies blurred vision, denies pain Ears: deny: decreased hearing, ear discharge, earache, tinnitus Ears, nose, mouth and throat: Denies headache, Denies sore throat Cardiovascular: Reports decreased exercise tolerance Respiratory: Reports dyspnea Gastrointestinal: Reports abdominal pain, Reports hematochezia Genitourinary: Reports as per HPI (No specific complaints) Musculoskeletal: Reports muscle weakness Integumentary: Denies pruritus, Denies rash Neurological: Reports as per HPI, Reports change in mentation, Reports confusion , Reports weakness Psychiatric: Reports change in sleep habits, Reports confusion, Reports disorientation Endocrine: Reports fatigue, Reports weight change Hematologic/Lymphatic: Reports as per HPI, Reports thrombophilia (Due to cancer) Past Medical History Past Medical History: Diabetes Mellitus, Deep Vein Thrombosis (DVT), Hypertension Additional Past Medical History / Comment(s): pancreatic cancer with mets to peritoneal lining and lungs; right leg dvt 03/02; History of Any Multi-Drug Resistant Organisms: None Reported Past Surgical History: No Surgical Hx Reported Additional Past Surgical History / Comment(s): right implanted port Past Anesthesia/Blood Transfusion Reactions: No Reported Reaction Past Psychological History: No Psychological Hx Reported Smoking Status: Current some day smoker Past Alcohol Use History: None Reported Past Drug Use History: None Reported - Past Family History Father Family Medical History: Unable to Obtain Mother Family Medical History: Unable to Obtain Medications and Allergies Home Medications Medication Instructions Recorded Confirmed Type Lipase/Protease/Amylase [Tiesha Kelly 1 cap PO AC-TID 01/28/16 05/21/16 History 12,000 Units Capsule] Carvedilol [Coreg] 12.5 mg PO BID@0800,1700 01/29/16 05/21/16 History Methadone [Dolophine] 10 mg PO TID 01/29/16 05/21/16 History Polyethylene Glycol 3350 [Miralax] 17 gm PO TID 01/29/16 05/21/16 History Prochlorperazine [Compazine] 10 mg PO Q6H PRN 01/29/16 05/21/16 History Verapamil HCl [Verapamil ER] 240 mg PO HS 01/29/16 05/21/16 History Ondansetron [Zofran ODT] 8 mg PO Q12HR PRN 04/10/16 05/21/16 History Cyanocobalamin [Vitamin B-12] 500 mcg PO DAILY 05/08/16 05/21/16 History Ferrous Sulfate [Iron (65 MG 325 mg PO DAILY@0800 05/08/16 05/21/16 History Elemental)] Magnesium Oxide [Mag-Ox] 400 mg PO DAILY 05/08/16 05/21/16 History Omeprazole [PriLOSEC] 20 mg PO DAILY@0800 05/08/16 05/21/16 History Rivaroxaban [Xarelto] 20 mg PO DAILY@0800 05/08/16 05/21/16 History Allergies Allergy/AdvReac Type Severity Reaction Status Date / Time Penicillins Allergy Rash/Hives Verified 05/21/16 23:00 rofecoxib [From Vioxx] Allergy Unknown Verified 05/21/16 23:00 NARCOTICS Allergy Unknown Uncoded 05/08/16 15:06 Physical Exam Vitals: Vital Signs Temp Pulse Pulse Resp BP BP Pulse Ox 05/22/16 15:00 97.5 F L 76 16 122/70 100 05/22/16 11:00 77 16 118/77 98 05/22/16 10:00 82 16 124/84 96 05/22/16 09:00 97.5 F L 91 16 129/74 99 05/22/16 08:00 81 16 145/94 95 05/22/16 07:39 84 14 145/94 100 05/22/16 07:00 94 13 127/91 97 05/22/16 06:15 107 H 18 97 05/22/16 06:00 115 H 33 H 113/79 93 L 05/22/16 05:45 108 H 18 113/79 99 05/22/16 05:35 97.7 F 90 18 113/79 99 05/22/16 05:30 97.7 F 92 18 104/62 98 05/22/16 05:00 91 14 95/63 100 05/22/16 04:00 97.7 F 92 9 L 100/68 99 05/22/16 03:47 90 10 L 96/57 98 05/22/16 03:17 97.7 F 93 14 94/57 99 05/22/16 03:07 97.6 F 101 H 16 105/51 100 05/22/16 03:00 105 H 16 105/51 99 05/22/16 02:00 89 14 122/64 100 05/22/16 01:11 97 F L 85 18 106/66 100 Intake and Output 05/22/16 05/22/16 05/23/16 14:59 22:59 06:59 Intake Total 490 Output Total 190 1249 Balance 300 -1249 Intake: Intake, IV Titration 180 Amount Magnesium Sulfate-D5w Pmx 100 1 gm In Dextrose/Water 1 100ml.bag @ 100 mls/hr IVPB Q1H [facility] Rx#: [id number] Sodium Chloride 0.9% 1, 80 000 ml @ 20 mls/hr IV . Q24H [facility] Rx#:[id number] Blood Product 310 Rc Pheresis 2 As3 Unit 310 [id number] Output: Urine 190 250 Uretheral (Hirsch) 250 Post Void Residual 999 Other: Voiding Method Indwelling Catheter # Voids 0 Weight 63.5 kg Patient Weight 05/23/16 06:59 Weight 63.5 kg - Constitutional The patient is very weak and obtunded. He was difficult to arouse General appearance: no acute distress - EENT Eyes: EOMI, PERRLA ENT: hearing grossly normal, normal oropharynx - Neck Neck: no lymphadenopathy - Respiratory Respiratory: bilateral: CTA - Cardiovascular Rhythm: regular Heart sounds: normal: S1, S2 - Gastrointestinal General gastrointestinal: normal bowel sounds, soft - Integumentary Integumentary: normal - Neurologic Neurologic: CNII-XII intact - Musculoskeletal Musculoskeletal: generalized weakness, strength equal bilaterally - Psychiatric The patient is very lethargic and difficult to arouse. On waking up, he was unable to state who I was, or to name the month and place accurately. He was able to follow commands appropriately Results CBC & Chem 7: 05/22/16 10:05 05/22/16 10:05 Labs: Abnormal Lab Results - Last 24 Hours (Table) 05/22/16 05/22/16 05/22/16 Range/Units 05:55 07:28 10:05 WBC 27.0 H* (3.8-10.6) k/uL RBC 2.85 L (4.30-5.90) m/uL Hgb 8.4 L D (13.0-17.5) gm/dL Hct 25.5 L (39.0-53.0) % RDW 23.9 H (11.5-15.5) % Neutrophils # 23.8 H (1.3-7.7) k/uL Chloride (98-107) mmol/L BUN (9-20) mg/dL Glucose (74-99) mg/dL POC Glucose (mg/dL) 129 H (75-99) mg/dL Calcium (8.4-10.2) mg/dL Phosphorus (2.5-4.5) mg/dL Total Protein (6.3-8.2) g/dL Albumin (3.5-5.0) g/dL Urine Protein Trace H (Negative) Urine Bilirubin 1+ H (Negative) 05/22/16 05/22/16 05/22/16 Range/Units 10:05 12:05 17:53 WBC (3.8-10.6) k/uL RBC (4.30-5.90) m/uL Hgb (13.0-17.5) gm/dL Hct (39.0-53.0) % RDW (11.5-15.5) % Neutrophils # (1.3-7.7) k/uL Chloride 109 H (98-107) mmol/L BUN 30 H (9-20) mg/dL Glucose 101 H (74-99) mg/dL POC Glucose (mg/dL) 103 H 140 H (75-99) mg/dL Calcium 8.3 L (8.4-10.2) mg/dL Phosphorus 4.6 H (2.5-4.5) mg/dL Total Protein 6.2 L (6.3-8.2) g/dL Albumin 2.2 L (3.5-5.0) g/dL Urine Protein (Negative) Urine Bilirubin (Negative) 05/22/16 Range/Units 20:15 WBC (3.8-10.6) k/uL RBC (4.30-5.90) m/uL Hgb (13.0-17.5) gm/dL Hct (39.0-53.0) % RDW (11.5-15.5) % Neutrophils # (1.3-7.7) k/uL Chloride (98-107) mmol/L BUN (9-20) mg/dL Glucose (74-99) mg/dL POC Glucose (mg/dL) 130 H (75-99) mg/dL Calcium (8.4-10.2) mg/dL Phosphorus (2.5-4.5) mg/dL Total Protein (6.3-8.2) g/dL Albumin (3.5-5.0) g/dL Urine Protein (Negative) Urine Bilirubin (Negative) Microbiology - Last 24 Hours (Table) 05/22/16 05:55 Urine Culture - Preliminary Urine,Catheterized Assessment and Plan (1) Acute blood loss anemia Narrative/Plan: The patient did have anemia and baseline, related to his cancer and chemotherapy. However at the time of discharge, on 05/11/16, hemoglobin was actually starting to improve and was in the 9 range. On presentation this time hemoglobin had dropped into the 6 range. This drop is unlikely to be because of chemotherapy as the patient has not had any treatment since discharge, and is now about 3 weeks out from his last chemotherapy. Therefore the drop appears to be related to GI bleeding, which has been noted by his . Per my discussion with nursing, no active bleeding has been noted since admission. Hemodynamics have been fairly stable. 2 units of blood transfusion have been ordered and I I am in agreement with that. A repeat hemoglobin after transfusion is pending. A GI consult has been placed. We will await their evaluation. IF the patient improves with blood transfusion, and is felt to be stable for endoscopic evaluation, I would be in agreement with that as he does appear to be responding to chemotherapy. Status: Acute (2) Metastasis from pancreatic cancer Narrative/Plan: On the patient has actually had a good response, with CA 19-9 decreasing from 5000+ down to 453 2 weeks ago. However his tolerance of treatment has been progressively poor, with dose reduction needed for cycle 3. It was felt that most of his symptomatology related to his recent admission was due to chemotherapy effect. Therefore at the time of his previous discharge, the plan had been to delay his chemotherapy and dose reduce further. At this time, a significant improvement in his performance status would need to occur before resumption of chemotherapy can be considered, even with dose adjustment Status: Acute (3) Acute encephalopathy Narrative/Plan: The patient does have known liver metastasis, but as noted, his cancer has actually responded to chemotherapy well. Liver enzymes are normal. However the patient likely does have a decreased liver function, and was noted to have elevated ammonia levels. At this time, it is felt that his encephalopathy is likely due to severe anemia, as well as a hepatic component, due to GI bleed. We will follow his mental status, with the blood transfusion and hopefully improvement in hemoglobin, as well as ongoing supportive measures. Status: Acute
[2016-05-23] MEDS: SODIUM CHLORIDE 0.9% 1,000 ML IV SCH (05:25)
[2016-05-23 07:37] LABS: Glucose,Whole Blood 102 mg/dL (75-99)
[2016-05-23] MEDS: METHADONE 10 MG TAB PO SCH ×3 (08:11→21:26)
[2016-05-23] MEDS: CARVEDILOL 12.5 MG TAB PO SCH ×2 (08:15→18:28)
[2016-05-23] MEDS: CHOLESTYRAMINE (WITH SUGAR) 4 GM PACKET PO SCH ×2 (08:15→21:17)
[2016-05-23] MEDS: POLYETHYLENE GLYCOL 3350 17 GM POWD.PACK PO SCH ×3 (08:16→21:17)
[2016-05-23] MEDS: LIPASE 5,000/PROTEASE 17,000/AMYLASE 27,0000 PO SCH ×3 (08:16→17:59)
[2016-05-23] MEDS: FERROUS SULFATE 325 MG TAB PO SCH (08:16)
[2016-05-23] MEDS: MAGNESIUM OXIDE 400 MG TAB PO SCH (08:17)
[2016-05-23] MEDS: DICYCLOMINE 10 MG CAP PO SCH ×3 (08:17→21:26)
[2016-05-23] MEDS: CYANOCOBALAMIN 500 MCG TAB PO SCH (08:17)
[2016-05-23] MEDS: PANTOPRAZOLE 40 MG/10 ML VIAL IVP SCH ×2 (08:17→21:26)
--- NOTE | 2016-05-23 09:01 | P.PN ---
Subjective Principal diagnosis: Anemia metastatic pancreatic cancer GI bleed 60-year-old male with a history metastatic pancreatic cancer presents with bright red blood per rectum and anemia. Hospice consultation scheduled for 10 AM this morning. Spoke with at bedside this morning her wishes are to not proceed with endoscopic workup of GI bleed. Nurse reports no episodes of rectal bleeding since admission. Hemoglobin yesterday morning 8.4. Objective - Vital Signs Vital signs: Vital Signs Temp 97.8 F 05/23/16 07:00 Pulse 82 05/23/16 07:00 Resp 18 05/23/16 07:00 BP 112/76 05/23/16 07:00 Pulse Ox 100 05/23/16 07:00 Intake & Output 05/22/16 05/23/16 05/23/16 18:59 06:59 18:59 Intake Total 490 180 Output Total 1439 Balance -949 180 Weight 63.5 kg Intake: IV 180 Sodium Chloride 0.9% 1, 180 000 ml @ 20 mls/hr IV . Q24H [facility] Rx#:[id number] Intake, IV Titration 180 Amount Magnesium Sulfate-D5w Pmx 100 1 gm In Dextrose/Water 1 100ml.bag @ 100 mls/hr IVPB Q1H [facility] Rx#: [id number] Sodium Chloride 0.9% 1, 80 000 ml @ 20 mls/hr IV . Q24H [facility] Rx#:[id number] Blood Product 310 Rc Pheresis 2 As3 Unit 310 [id number] Output: Urine 440 Uretheral (Hirsch) 250 Post Void Residual 999 Other: Voiding Method Indwelling Catheter Urinal # Voids 0 - Exam General appearance: The patient is alert, oriented, in no acute distress. Appears weak. Pale conjunctiva. Overall thin appearance cachectic. HET: Head is normocephalic and atraumatic. Pupils are equal and reactive. Oropharynx is clear without lesions. Neck: Supple without lymphadenopathy. Trachea midline. Heart: S1 S2. Lungs: No crackles or wheezes are heard. Abdomen: Soft, mild midepigastric tenderness, nondistended with bowel sounds. No peritoneal signs. No palpable organomegaly or masses. Extremities: Normal skin color and turgor. No cyanosis, rash, ulceration, clubbing, or edema. Radial and pedal pulses are 2/4 bilaterally. Neurological: No focal deficits. Strength and sensation are grossly intact. - Labs CBC & Chem 7: 05/22/16 10:05 05/22/16 10:05 Labs: Abnormal Lab Results - Last 24 Hours (Table) 05/22/16 05/22/16 05/22/16 Range/Units 10:05 10:05 12:05 WBC 27.0 H* (3.8-10.6) k/uL RBC 2.85 L (4.30-5.90) m/uL Hgb 8.4 L D (13.0-17.5) gm/dL Hct 25.5 L (39.0-53.0) % RDW 23.9 H (11.5-15.5) % Neutrophils # 23.8 H (1.3-7.7) k/uL Chloride 109 H (98-107) mmol/L BUN 30 H (9-20) mg/dL Glucose 101 H (74-99) mg/dL POC Glucose (mg/dL) 103 H (75-99) mg/dL Calcium 8.3 L (8.4-10.2) mg/dL Phosphorus 4.6 H (2.5-4.5) mg/dL Total Protein 6.2 L (6.3-8.2) g/dL Albumin 2.2 L (3.5-5.0) g/dL 05/22/16 05/22/16 05/23/16 Range/Units 17:53 20:15 07:21 WBC (3.8-10.6) k/uL RBC (4.30-5.90) m/uL Hgb (13.0-17.5) gm/dL Hct (39.0-53.0) % RDW (11.5-15.5) % Neutrophils # (1.3-7.7) k/uL Chloride (98-107) mmol/L BUN (9-20) mg/dL Glucose (74-99) mg/dL POC Glucose (mg/dL) 140 H 130 H 102 H (75-99) mg/dL Calcium (8.4-10.2) mg/dL Phosphorus (2.5-4.5) mg/dL Total Protein (6.3-8.2) g/dL Albumin (3.5-5.0) g/dL Microbiology - Last 24 Hours (Table) 05/22/16 05:55 Urine Culture - Preliminary Urine,Catheterized Assessment and Plan (1) Gastrointestinal bleed Status: Acute (2) Acute blood loss anemia Status: Acute (3) Metastasis from pancreatic cancer Status: Acute (4) Pancytopenia due to antineoplastic chemotherapy Status: Acute (5) History of DVT (deep vein thrombosis) Status: Acute (6) Serum ammonia increased Narrative/Plan: Suspect metabolic encephalopathy Status: Acute Plan: 1. Supportive measures. Hospice consultation at 10 AM. No further workup at this time as requested by patient's spouse. Will be available as needed. Assessment and plan of care discussed with Dr. Sommer
[2016-05-23 11:38] LABS: Glucose,Whole Blood 96 mg/dL (75-99)
[2016-05-23 11:42] LABS: Anion Gap 7 mmol/L; Blood Urea Nitrogen 23 mg/dL (9-20); Carbon Dioxide 23 mmol/L (22-30); Chloride 110 mmol/L (98-107); Glucose 96 mg/dL (74-99); Non-African American GFR(MDRD) >60 (>60 ml/min/1.73 sqM); Phosphorous 4.3 mg/dL (2.5-4.5); Sodium 140 mmol/L (137-145)
[2016-05-23 13:51] LABS: Anisocytosis Marked; Basophils # (A) 0.1 k/uL (0-0.2); Basophils % (A) 0 %; CH 29.9; CHCM 32.6; Eosinophils % (A) 0 %; HCT 27.1 % (39.0-53.0); HDW 3.78; HGB 8.6 gm/dL (13.0-17.5); Hypochromasia Slight; Luc # (Auto) 0.28; Luc % (Auto) 1; Lymphocytes # (A) 1.7 k/uL (1.0-4.8); Lymphocytes % (A) 8 %; MCH 29.4 pg (25.0-35.0); MCHC 31.7 g/dL (31.0-37.0); MCV 92.8 fL (80.0-100.0); Macrocytosis Slight; Monocytes % (A) 5 %; Neutrophils # (A) 17.3 k/uL (1.3-7.7); Neutrophils % (A) 85 %; Poikilocytosis Slight; RBC 2.92 m/uL (4.30-5.90); WBC 20.4 k/uL (3.8-10.6); WBC (Perox) 20.53
[2016-05-23 14:04] LABS: Manual Review Performed; Polychromasia Present
[2016-05-23] MEDS: ONDANSETRON 4 MG/2 ML VIAL IVP PRN (14:06)
--- NOTE | 2016-05-23 17:12 | PN ---
Patient is admitted with GI bleed and patient GI bleed improved at this point of time. Patient is off Xarelto. Family is planning on hospice. They will sign in hospice tomorrow apparently. Patient has a little bit of improvement with IV blood transfusion. His confusion improved a little bit. REVIEW OF SYSTEMS: CARDIOVASCULAR: No chest pain, no orthopnea, no PND, no palpitations. PULMONARY: Denied any shortness of breath. No cough or hemoptysis. GASTROINTESTINAL: No diarrhea, nausea or vomiting. No abdominal pain. Normoactive bowel sounds. NEUROLOGIC: No headaches, no weakness, no numbness. GENERAL: Patient is still weak, tired, malaise. Medications were reviewed. PHYSICAL EXAMINATION: VITAL SIGNS: Temperature 97.8, pulse of 82, respiratory rate of 18, blood pressure is 112/76, saturating at 100% on room air. GENERAL: Patient is tired, sleepy and cachetic. HEENT: Pupils are round and equally reacting to light. EOMI. No scleral icterus. No conjunctival pallor. Normocephalic, atraumatic. No pharyngeal erythema. No thyromegaly. CARDIOVASCULAR: S1 and S2 present. No murmurs, rubs, or gallops. PULMONARY: Chest is clear to auscultation, no wheezing or crackles. ABDOMEN: Soft, nontender, nondistended, normoactive bowel sounds. No palpable organomegaly. MUSCULOSKELETAL: No joint swelling or deformity. EXTREMITIES: No cyanosis, clubbing, or pedal edema. NEUROLOGICAL: Gross neurological examination did not reveal any focal deficits. SKIN: No rashes. LABORATORY DATA: CBC, CMP, essentially within normal limits. Will not obtain any further labs. The patient's WBC count is improving to 20,000. ASSESSMENT AND PLAN: 1. Acute lower gastrointestinal bleed. No further intervention. Xarelto is being discontinued. 2. Metastatic pancreatic cancer. 3. Deep venous thrombosis in the past. 4. Leukocytosis. 5. Elevated serum ammonia. Patient does not have any signs or symptoms of infection. No antibiotics at this point of time. Patient will sign up for home hospice tomorrow. Will not do any further lab testing at this time.
[2016-05-23 17:24] LABS: Glucose,Whole Blood 110 mg/dL (75-99)
[2016-05-23 20:45] LABS: Glucose,Whole Blood 130 mg/dL (75-99)
[2016-05-23] MEDS: VERAPAMIL SR 240 MG TABLET.ER PO SCH (21:26)
[2016-05-24] MEDS: SODIUM CHLORIDE 0.9% 1,000 ML IV SCH (04:47)
[2016-05-24 07:18] LABS: Glucose,Whole Blood 94 mg/dL (75-99)
[2016-05-24 07:51] LABS: Magnesium 1.9 mg/dL (1.6-2.3); Phosphorous 3.6 mg/dL (2.5-4.5)
[2016-05-24] MEDS: POLYETHYLENE GLYCOL 3350 17 GM POWD.PACK PO SCH ×3 (08:06→23:37)
[2016-05-24] MEDS: PANTOPRAZOLE 40 MG/10 ML VIAL IVP SCH (08:06)
[2016-05-24] MEDS: DICYCLOMINE 10 MG CAP PO SCH ×3 (08:07→22:27)
[2016-05-24] MEDS: LIPASE 5,000/PROTEASE 17,000/AMYLASE 27,0000 PO SCH ×3 (08:07→17:32)
[2016-05-24] MEDS: CYANOCOBALAMIN 500 MCG TAB PO SCH (08:07)
[2016-05-24] MEDS: FERROUS SULFATE 325 MG TAB PO SCH (08:07)
[2016-05-24] MEDS: CARVEDILOL 12.5 MG TAB PO SCH ×2 (08:07→16:16)
[2016-05-24] MEDS: CHOLESTYRAMINE (WITH SUGAR) 4 GM PACKET PO SCH ×2 (08:07→22:23)
[2016-05-24] MEDS: MAGNESIUM OXIDE 400 MG TAB PO SCH (08:07)
[2016-05-24] MEDS: METHADONE 10 MG TAB PO SCH ×2 (08:12→16:15)
[2016-05-24 11:44] LABS: Glucose,Whole Blood 110 mg/dL (75-99)
[2016-05-24 12:37] LABS: Anisocytosis Marked; Basophils # (A) 0.1 k/uL (0-0.2); Basophils % (A) 0 %; CH 29.6; CHCM 31.3; Eosinophils # (A) 0.1 k/uL (0-0.7); Eosinophils % (A) 0 %; HDW 3.81; HGB 8.3 gm/dL (13.0-17.5); Hypochromasia Moderate; Luc # (Auto) 0.31; Luc % (Auto) 2; Lymphocytes # (A) 2.2 k/uL (1.0-4.8); Lymphocytes % (A) 12 %; MCH 29.6 pg (25.0-35.0); MCHC 30.8 g/dL (31.0-37.0); MCV 96.2 fL (80.0-100.0); Macrocytosis Moderate; Mean Platelet Volume 8.9; Monocytes % (A) 6 %; Neutrophils # (A) 14.5 k/uL (1.3-7.7); Neutrophils % (A) 80 %; Poikilocytosis Slight; RDW 24.6 % (11.5-15.5); WBC 18.1 k/uL (3.8-10.6)
--- NOTE | 2016-05-24 13:10 | P.PN ---
Subjective Principal diagnosis: Pancreatic malignancy Pt had multiple questions for Dr. Head regarding palliation of symptoms, blood transfusions and wanted his opinion about her husbands case. Pt is currently report as comfortable. Objective - Vital Signs Vital signs: Vital Signs Temp 98.1 F 05/24/16 07:00 Pulse 79 05/24/16 07:00 Resp 18 05/24/16 07:00 BP 120/73 05/24/16 07:00 Pulse Ox 99 05/24/16 07:00 Intake & Output 05/23/16 05/24/16 05/24/16 18:59 06:59 18:59 Intake Total 140 Balance 140 Intake: IV 140 Sodium Chloride 0.9% 1, 140 000 ml @ 20 mls/hr IV . Q24H [facility] Rx#:[id number] Other: Voiding Method Urinal Urinal Urinal Incontinent Incontinent # Voids 0 1 - Exam no PE - Labs CBC & Chem 7: 05/24/16 07:15 05/23/16 11:04 Labs: Abnormal Lab Results - Last 24 Hours (Table) 05/23/16 05/23/16 05/23/16 Range/Units 11:04 17:15 20:24 WBC 20.4 H (3.8-10.6) k/uL RBC 2.92 L (4.30-5.90) m/uL Hgb 8.6 L (13.0-17.5) gm/dL Hct 27.1 L (39.0-53.0) % MCHC (31.0-37.0) g/dL RDW 24.0 H (11.5-15.5) % Neutrophils # 17.3 H (1.3-7.7) k/uL POC Glucose (mg/dL) 110 H 130 H (75-99) mg/dL 05/24/16 05/24/16 Range/Units 07:15 11:36 WBC 18.1 H (3.8-10.6) k/uL RBC 2.80 L (4.30-5.90) m/uL Hgb 8.3 L (13.0-17.5) gm/dL Hct 27.0 L (39.0-53.0) % MCHC 30.8 L (31.0-37.0) g/dL RDW 24.6 H (11.5-15.5) % Neutrophils # 14.5 H (1.3-7.7) k/uL POC Glucose (mg/dL) 110 H (75-99) mg/dL Microbiology - Last 24 Hours (Table) 05/22/16 05:55 Urine Culture - Final Urine,Catheterized Assessment and Plan (1) Acute blood loss anemia Status: Acute (2) Acute encephalopathy Status: Acute (3) Anemia Status: Acute (4) Gastrointestinal bleed Status: Acute (5) Pancreatic cancer Status: Acute Plan: Despite objective evidence of tumor response to treatment pt has not physically tolerated treatment well. He now has highly suspect acute GI bleeding with severe anemia. In his current condition pt is not a candidate for chemotherapy and the confirmed that pt does not want treatment. Pt and family have agreed to hospice. feels that pt cognitively functions better when his Hgb is around 10. It was explained that pt cognition is being affected by more then just anemia, despite fair LFTs it is felt the liver is failing which is contributing to altered cognition. Blood transfusions are only a temporary fix with the effects lasting maybe a few days and without correction of the underlying problems pt will continue to be anemic despite transfusions. Pt verbalized understanding, all of her questions were answered to her satisfaction.
[2016-05-24 17:11] LABS: Glucose,Whole Blood 156 mg/dL (75-99)
[2016-05-24 20:07] LABS: Glucose,Whole Blood 179 mg/dL (75-99)
[2016-05-24] MEDS: PANTOPRAZOLE 40 MG TABLET PO SCH (22:27)
[2016-05-24] MEDS: VERAPAMIL SR 240 MG TABLET.ER PO SCH (22:27)
[2016-05-25] MEDS: METHADONE 10 MG TAB PO SCH ×4 (01:11→23:21)
[2016-05-25 07:19] LABS: Glucose,Whole Blood 107 mg/dL (75-99)
[2016-05-25] MEDS: SODIUM CHLORIDE 0.9% 1,000 ML IV SCH (07:31)
[2016-05-25] MEDS: DICYCLOMINE 10 MG CAP PO SCH ×3 (07:36→23:22)
[2016-05-25] MEDS: CARVEDILOL 12.5 MG TAB PO SCH ×2 (07:36→17:27)
[2016-05-25] MEDS: FERROUS SULFATE 325 MG TAB PO SCH (07:36)
[2016-05-25] MEDS: LIPASE 5,000/PROTEASE 17,000/AMYLASE 27,0000 PO SCH ×3 (07:36→17:27)
[2016-05-25] MEDS: CHOLESTYRAMINE (WITH SUGAR) 4 GM PACKET PO SCH ×2 (07:36→21:03)
[2016-05-25] MEDS: PANTOPRAZOLE 40 MG TABLET PO SCH ×2 (07:36→21:16)
[2016-05-25] MEDS: MAGNESIUM OXIDE 400 MG TAB PO SCH (07:37)
[2016-05-25] MEDS: POLYETHYLENE GLYCOL 3350 17 GM POWD.PACK PO SCH ×3 (07:37→21:04)
[2016-05-25] MEDS: CYANOCOBALAMIN 500 MCG TAB PO SCH (07:37)
[2016-05-25 08:17] LABS: Anisocytosis Marked; Basophils # (A) 0.1 k/uL (0-0.2); Basophils % (A) 1 %; CH 29.8; CHCM 31.9; Eosinophils # (A) 0.1 k/uL (0-0.7); Eosinophils % (A) 1 %; HCT 30.5 % (39.0-53.0); HDW 3.92; HGB 9.5 gm/dL (13.0-17.5); Hypochromasia Moderate; Luc # (Auto) 0.31; Luc % (Auto) 2; Lymphocytes # (A) 2.1 k/uL (1.0-4.8); Lymphocytes % (A) 15 %; MCH 29.4 pg (25.0-35.0); MCV 94.9 fL (80.0-100.0); Macrocytosis Moderate; Mean Platelet Volume 8.1; Monocytes # (A) 0.8 k/uL (0-1.0); Monocytes % (A) 6 %; Neutrophils # (A) 10.4 k/uL (1.3-7.7); Neutrophils % (A) 76 %; Poikilocytosis Slight; RBC 3.21 m/uL (4.30-5.90); WBC 13.7 k/uL (3.8-10.6); WBC (Perox) 14.32
[2016-05-25 08:35] LABS: Magnesium 2.1 mg/dL (1.6-2.3); Phosphorous 3.6 mg/dL (2.5-4.5)
--- NOTE | 2016-05-25 08:38 | DS ---
DATE OF ADMISSION: 05/22/2016 DATE OF DISCHARGE: The patient is admitted with GI bleed. GI bleed improved at this point of time. Patient was off Xarelto. Patient has pancreatic cancer. Patient did not tolerate chemotherapy well. Patient was subsequently made hospice. Patient will be discharged today home on hospice. Patient was seen and examined on the day of discharge. FINAL DIAGNOSES: 1. Acute lower gastrointestinal bleed. 2. Metastatic pancreatic cancer. 3. Deep venous thrombosis in the past. 4. Leukocytosis. 5. Elevated serum ammonia on admission. DISCHARGE MEDICATIONS: Please refer to my depart summary. Patient will follow up with Dr. Link on as-needed basis and hospice will follow with patient. Patient will be discharged home with home hospice.
[2016-05-25 13:11] LABS: INR 1.5 (<1.1); Prothrombin Time 14.7 sec (9.0-12.0)
--- NOTE | 2016-05-25 13:46 | US ---
EXAMINATION TYPE: US abdomen limited DATE OF EXAM: 05/25/2016 1:21 PM COMPARISON: In pacs CLINICAL HISTORY: assess for fluid . TECHNOLOGIST IMPRESSION: Large amount of ascites seen within all 4 quadrants. IMPRESSION: Ascites.
--- NOTE | 2016-05-25 16:22 | US ---
Therapeutic paracentesis. CLINICAL HISTORY: Ascites The procedure was discussed with the patient. The risks, complications, benefits, and alternatives we re discussed and any questions were answered. Informed consent was obtained. The patient was placed s upine on the ultrasound table and prepped and draped in the usual sterile fashion. All elements of maximal barrier technique were utilized. Under ultrasound guidance, access into the right lower quadrant was obtained, via the paracentesis catheter system and direct ultrasound guidanc e. Approximately 6.2 liters of straw-colored fluid was removed. The patient was stable throughout the pr ocedure and remained stable upon discharge from Department of Radiology. IMPRESSION: Successful therapeutic paracentesis under ultrasound guidance.
[2016-05-25 16:36] LABS: Glucose,Whole Blood 109 mg/dL (75-99)
[2016-05-25 17:20] VITALS: RESP 16
[2016-05-25 20:04] LABS: Glucose,Whole Blood 149 mg/dL (75-99)
[2016-05-25] MEDS: VERAPAMIL SR 240 MG TABLET.ER PO SCH (21:19)
--- NOTE | 2016-05-25 22:07 | PN ---
DATE OF SERVICE: 05/25/2016 INTERVAL HISTORY: This is a patient with pancreatic cancer who received chemotherapy. Now patient does not want any further treatment. Functional status is poor. When I saw the patient earlier today, abdominal ultrasound was ordered ( ) relief from therapeutic paracentesis. Patient does not have power at home. In either case, he will not therefore be able to get discharged today. Oral intake is little. Feeling weak and tired. Review of systems is done for constitutional, cardiovascular, GI, pulmonary; relevant findings as above. Current medications are reviewed. On examination, temperature 97.6, pulse 83, respiration 16, blood pressure 130/77, pulse ox 96% on room air. GENERAL APPEARANCE: Lying in bed. Tired-appearing. EYES: Pupils equal. Conjunctivae pale. NECK: JVD unable to assess. RESPIRATORY: Effort increased. LUNGS: Diminished breath sounds. CARDIOVASCULAR: First and second sounds normal. Mild edema. ABDOMEN: Distended. Dullness to percutaneous in the flanks. Some tenderness. PSYCHIATRY: Tired-appearing. Answering simple questions. INVESTIGATIONS: White count 13.7, hemoglobin 9.5. ASSESSMENT: 1. Pancreatic cancer. Patient is status post chemotherapy. 2. Chronic obstructive pulmonary disease in a smoker. 3. Chronic nicotine dependence. Patient is a smoker. 4. Ascites, large, with some compromise in respiration. 5. Essential hypertension. 6. Normocytic anemia secondary to underlying malignancy. 7. Severe protein-calorie malnutrition with diffuse wasting of muscle and hypoalbuminemia, decreased oral intake. 8. Gastrointestinal bleed on presentation. PLAN: Patient is due to go for ultrasound and possibly paracentesis today for symptom control. Care with discussed in length with the nurse. 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 Total time spent today was about 35 to 40 minutes with over 20 minutes of discussion.
[2016-05-26 07:21] LABS: Glucose,Whole Blood 100 mg/dL (75-99)
[2016-05-26] MEDS: SODIUM CHLORIDE 0.9% 1,000 ML IV SCH (08:05)
[2016-05-26 08:23] VITALS: BP 132/77; PULSE 74; TEMP 98.5
[2016-05-26] MEDS: POLYETHYLENE GLYCOL 3350 17 GM POWD.PACK PO SCH (08:33)
[2016-05-26] MEDS: CHOLESTYRAMINE (WITH SUGAR) 4 GM PACKET PO SCH (08:34)
[2016-05-26] MEDS: METHADONE 10 MG TAB PO SCH (08:34)
[2016-05-26] MEDS: CARVEDILOL 12.5 MG TAB PO SCH (08:34)
[2016-05-26] MEDS: FERROUS SULFATE 325 MG TAB PO SCH (08:34)
[2016-05-26] MEDS: PANTOPRAZOLE 40 MG TABLET PO SCH (08:35)
[2016-05-26] MEDS: LIPASE 5,000/PROTEASE 17,000/AMYLASE 27,0000 PO SCH ×2 (08:35→12:37)
[2016-05-26] MEDS: DICYCLOMINE 10 MG CAP PO SCH (08:36)
[2016-05-26] MEDS: MAGNESIUM OXIDE 400 MG TAB PO SCH (08:36)
[2016-05-26] MEDS: CYANOCOBALAMIN 500 MCG TAB PO SCH (08:36)
[2016-05-26 11:35] LABS: Glucose,Whole Blood 122 mg/dL (75-99)
--- NOTE | 2016-05-26 20:39 | DS ---
DATE OF ADMISSION: 05/22/2016 DATE OF DISCHARGE: 05/26/2016 FINAL DIAGNOSES: 1. Pancreatic cancer, metastatic, status post chemotherapy. 2. Chronic obstructive pulmonary disease in a smoker. 3. Chronic nicotine dependence. Patient is a smoker. 4. Ascites, large, compromising respiration. 5. Essential hypertension. 6. Normocytic anemia secondary to underlying malignancy. 7. Severe protein-calorie malnutrition with diffuse muscle wasting. 8. Hypoalbuminemia, decreased oral intake. 9. Gastrointestinal bleed on presentation. PROCEDURE: Paracentesis. HOSPITAL COURSE: This patient is status post chemotherapy for pancreatic cancer, presents with some coffee-ground emesis. Patient continued to deteriorate, did have some palliative paracentesis. The patient will be going home with hospice after discussed this. CONSULTATION: Dr. Head from oncology, Dr. Sommer from GI. DISCHARGE MEDICATIONS: 1. Creon 12,000 units 1 capsule p.o. t.i.d. with meals. 2. Coreg 12.5 mg p.o. b.i.d. 3. Methadone 10 mg p.o. t.i.d. 4. MiraLax 17 g p.o. t.i.d. 5. Compazine 10 mg every 6 hours p.r.n. 6. Verapamil ER 240 mg p.o. q.h.s. 7. Bentyl 10 mg p.o. t.i.d. 8. Zofran 8 mg p.o. q.12 p.r.n. 9. Vitamin B12 500 mcg p.o. daily. 10. Iron 325 p.o. daily. 11. Magnesium oxide 400 mg p.o. daily. 12. Prilosec 20 mg p.o. daily. 13. Xarelto 20 mg p.o. daily. 14. Questran 4 g p.o. b.i.d. DISPOSITION: Home. Follow up with Dr. Link p.r.n. Patient's is looking into home with hospice. On examination, ABDOMEN: Slightly distended with mild tenderness. LUNGS: Decreased breath sounds. The patient is able to answer simple questions.
== END 2016-05-26 15:40 | disposition home or self-care (01) | DRG 377 ==
LOC: EC 22:39 → 6ICU 05-22 00:35 → 5ONC 05-22 12:23
PROVIDERS: ADMIT Hospitalist; ATTEND Hospitalist
PROC: 30233N1 Transfusion of Nonautologous Red Blood Cells into Peripheral Vein, Percutaneous Approach (ICD-10-PCS; 2016-05-22)
PROC: 0W9G3ZZ Drainage of Peritoneal Cavity, Percutaneous Approach (ICD-10-PCS; principal; 2016-05-25)
DX: K92.1 Melena (principal); D61.810 Antineoplastic chemotherapy induced pancytopenia; E43 Unspecified severe protein-calorie malnutrition; G93.40 Encephalopathy, unspecified; C25.9 Malignant neoplasm of pancreas, unspecified; C78.6 Secondary malignant neoplasm of retroperitoneum and peritoneum; C78.00 Secondary malignant neoplasm of unspecified lung; C78.7 Secondary malignant neoplasm of liver and intrahepatic bile duct; R18.8 Other ascites; D62 Acute posthemorrhagic anemia; Z68.1 Body mass index [BMI] 19.9 or less, adult; D63.0 Anemia in neoplastic disease; Z66 Do not resuscitate; I10 Essential (primary) hypertension; G89.29 Other chronic pain; J44.9 Chronic obstructive pulmonary disease, unspecified; E11.9 Type 2 diabetes mellitus without complications; F17.210 Nicotine dependence, cigarettes, uncomplicated; T45.1X5A Adverse effect of antineoplastic and immunosuppressive drugs, initial encounter; Z86.718 Personal history of other venous thrombosis and embolism; Z79.891 Long term (current) use of opiate analgesic; Z79.01 Long term (current) use of anticoagulants; Z79.899 Other long term (current) drug therapy; Z92.21 Personal history of antineoplastic chemotherapy
CPT/HCPCS: 36415; 49083; 71010; 76705; 80048; 80053; 81003; 82140; 82150; 82272; 82550; 82553; 83690; 83735; 84100; 84443; 84484; 85025; 85610; 85730; 86850; 86900; 86901; 86920; 87086; 93005; 96365; 96367; 96375; 99285

== ENCOUNTER 2016-06-27 11:37 | Day surgery (SDC) | payer MEDICAID, MEDICARE ==
[2016-06-27 12:20] VITALS: RESP 16
[2016-06-27 12:31] LABS: INR 1.6 (<1.1); Prothrombin Time 15.4 sec (9.0-12.0)
[2016-06-27 12:33] LABS: Mean Platelet Volume 7.3
--- NOTE | 2016-06-27 13:58 | US ---
Therapeutic paracentesis. CLINICAL HISTORY: Ascites The procedure was discussed with the patient. The risks, complications, benefits, and alternatives we re discussed and any questions were answered. Informed consent was obtained. The patient was placed s upine on the ultrasound table and prepped and draped in the usual sterile fashion. All elements of maximal barrier technique were utilized. Under ultrasound guidance, access into the right lower quadrant was obtained, via the paracentesis catheter system and direct ultrasound guidanc e. Approximately 5.8 liters of serous fluid was removed. The patient was stable throughout the procedure and remained stable upon discharge from Department of Radiology. IMPRESSION: Successful therapeutic paracentesis under ultrasound guidance.
[2016-06-27 14:13] VITALS: BP 129/76; PULSE 80
== END 2016-06-27 14:05 | disposition home or self-care (01) ==
LOC: RADPROMAIN 11:37
PROVIDERS: ATTEND Internal Medicine Hematology & Oncology
DX: R18.8 Other ascites (principal)
CPT/HCPCS: 49083; 85049; 85610

== ENCOUNTER 2016-07-20 13:01 | Day surgery (SDC) | payer MEDICAID, MEDICARE ==
[2016-07-20 13:44] LABS: Mean Platelet Volume 7.6
[2016-07-20 13:52] LABS: INR 1.6 (<1.1); Prothrombin Time 15.2 sec (9.0-12.0)
[2016-07-20 15:04] VITALS: TEMP 98.1
[2016-07-20 15:31] VITALS: RESP 16
[2016-07-20 16:37] VITALS: BP 130/70; PULSE 101
--- NOTE | 2016-07-20 17:27 | US ---
EXAMINATION TYPE: US paracentesis abd w/image DATE OF EXAM: 07/20/2016 4:06 PM COMPARISON: NONE HISTORY: Ascites. PROCEDURE: Maximal barrier technique was utilized. The skin overlying a suitable pocket of fluid was localized with ultrasound and the overlying skin was prepped and draped. Ultrasound was utilized with sterile technique. Lidocaine was used for local anesthesia and a skin renato made with a scalpel. Catheter was advanced under direct ultrasound guidance into a suitable pocket of fluid and approximately 6.5 liter s of serous fluid were removed. Catheter was withdrawn and hemostasis achieved. There is no immedia te complication; the patient is discharged in stable condition. IMPRESSION: STATUS POST ULTRASOUND GUIDED PARACENTESIS FOR PALLIATION OF ASCITES. THIS PROCEDURE WA S PERFORMED BY THE UNDERSIGNED.
== END 2016-07-20 16:30 | disposition home or self-care (01) ==
LOC: RADPROMAIN 13:01
PROVIDERS: ATTEND Internal Medicine Hematology & Oncology
DX: R18.8 Other ascites (principal)
CPT/HCPCS: 49083; 85049; 85610

== ENCOUNTER 2016-08-03 08:06 | Day surgery (SDC) | payer MEDICAID, MEDICARE ==
[2016-08-02 09:22] VITALS: BMI 22.6
[~2016-08-03 08:06] MED LIST: DEXAMETHASONE SOD PHOSPHATE 10 MG/ML 1 ML VIAL IV ONE; HEPARIN SODIUM,PORCINE 5,000 UNIT/ML 1 ML VIAL SQ ONE; LACTATED RINGERS 1,000 ML IV SCH; MIDAZOLAM 2 MG/2 ML VIAL IV PRN; ONDANSETRON 4 MG/2 ML VIAL IVP ONE; SCOPOLAMINE 1.5MG/72HR PATCH TRANSDERM ONE; ceFAZolin 2 GM in SODIUM CHLORIDE 0.9% 100 ML IVPB ONE
[2016-08-03 08:46] LABS: Glucose,Whole Blood 93 mg/dL (75-99)
[2016-08-03] MEDS ORDERED: LIDOCAINE 1% 20 ML VIAL (10MG/ML) FOR IV START INTRADERMA ONE (08:48)
[2016-08-03 09:13] LABS: Anisocytosis Slight; Basophils % (A) 0 %; CH 25.5; CHCM 30.6; Eosinophils % (A) 1 %; HCT 37.1 % (39.0-53.0); HDW 3.05; HGB 11.3 gm/dL (13.0-17.5); Hypochromasia Marked; Luc # (Auto) 0.08; Luc % (Auto) 1; Lymphocytes # (A) 1.4 k/uL (1.0-4.8); Lymphocytes % (A) 23 %; MCH 25.5 pg (25.0-35.0); MCHC 30.4 g/dL (31.0-37.0); Mean Platelet Volume 8.2; Monocytes # (A) 0.3 k/uL (0-1.0); Monocytes % (A) 6 %; Neutrophils # (A) 4.1 k/uL (1.3-7.7); Neutrophils % (A) 69 %; RBC 4.43 m/uL (4.30-5.90); WBC 5.9 k/uL (3.8-10.6); WBC (Perox) 5.92
[2016-08-03 09:14] LABS: MCV 83.7 fL (80.0-100.0); Potassium 3.6 mmol/L (3.5-5.1)
--- NOTE | 2016-08-03 09:27 | P.GSHP ---
History of Present Illness H&P Date: 08/03/16 Chief Complaint: Pancreatic cancer Patient is a history of pancreatic cancer. He has had recurrent malignant ascites. He has required multiple paracentesis for therapeutic reasons. The patient is here today for catheter placement for the home drainage of his peritoneal fluid. Past Medical History Past Medical History: Diabetes Mellitus, Deep Vein Thrombosis (DVT), Hypertension Additional Past Medical History / Comment(s): Pancreatic cancer with mets to peritoneal lining and lungs;hx. right leg dvt, 03/02; finished chemo in May 2016. Stopped taking Xarelto June 2016. Pt. is not taking any diabetic medication @ this time. History of Any Multi-Drug Resistant Organisms: None Reported Past Surgical History: No Surgical Hx Reported Additional Past Surgical History / Comment(s): right implanted port, paracentesis, colonoscopy. Past Anesthesia/Blood Transfusion Reactions: No Reported Reaction Past Psychological History: Depression Smoking Status: Current some day smoker Past Alcohol Use History: None Reported Additional Past Alcohol Use History / Comment(s): Smokes approx. 2-4 cig. per day. Started smoking at age 16. Past Drug Use History: None Reported - Past Family History Father Family Medical History: Unable to Obtain Mother Family Medical History: Unable to Obtain Medications and Allergies Home Medications Medication Instructions Recorded Confirmed Type Lipase/Protease/Amylase [Tiesha Kelly 1 cap PO AC-TID 01/28/16 08/03/16 History 12,000 Units Capsule] Carvedilol [Coreg] 12.5 mg PO BID@0800,1700 01/29/16 08/03/16 History Methadone [Dolophine] 10 mg PO TID 01/29/16 08/03/16 History Polyethylene Glycol 3350 [Miralax] 17 gm PO TID 01/29/16 08/02/16 History Prochlorperazine [Compazine] 10 mg PO Q6H PRN 01/29/16 08/03/16 History Verapamil HCl [Verapamil ER] 240 mg PO HS 01/29/16 08/03/16 History Ondansetron [Zofran ODT] 8 mg PO Q12HR PRN 04/10/16 08/03/16 History Cyanocobalamin [Vitamin B-12] 500 mcg PO DAILY 05/08/16 08/03/16 History Ferrous Sulfate [Iron (65 MG 325 mg PO DAILY@0800 05/08/16 08/03/16 History Elemental)] Magnesium Oxide [Mag-Ox] 400 mg PO DAILY 05/08/16 08/03/16 History Omeprazole [PriLOSEC] 20 mg PO DAILY@0800 05/08/16 08/02/16 History Furosemide [Lasix] 40 mg PO DAILY PRN 08/02/16 08/03/16 History Allergies Allergy/AdvReac Type Severity Reaction Status Date / Time morphine Allergy Confusion Verified 08/03/16 09:03 Penicillins Allergy Rash/Hives Verified 08/03/16 09:03 rofecoxib [From Vioxx] Allergy Rash/Hives Verified 08/03/16 09:03 NARCOTICS Allergy Confusion Uncoded 08/03/16 09:03 Surgical - Exam Vital Signs Temp Pulse Resp BP Pulse Ox 96.8 F L 72 16 143/95 99 08/03/16 08:23 08/03/16 08:23 08/03/16 08:23 08/03/16 08:23 08/03/16 08:23 Physical exam: General: Malnourished appearing elderly male in no distress HEENT: Normocephalic, sclerae nonicteric Abdomen: Nontender, distended with fluid Extremities: No edema Neuro: Alert and oriented Results - Labs 08/03/16 08:45 08/03/16 08:45 Abnormal Lab Results - Last 24 Hours (Table) 08/03/16 Range/Units 08:45 Hgb 11.3 L (13.0-17.5) gm/dL Hct 37.1 L (39.0-53.0) % MCHC 30.4 L (31.0-37.0) g/dL RDW 17.0 H (11.5-15.5) % Diabetes panel 08/03/16 Range/Units 08:45 Sodium 139 (137-145) mmol/L Potassium 3.6 (3.5-5.1) mmol/L Chloride 106 (98-107) mmol/L Carbon Dioxide 27 (22-30) mmol/L Pituitary panel 08/03/16 Range/Units 08:45 Sodium 139 (137-145) mmol/L Potassium 3.6 (3.5-5.1) mmol/L Chloride 106 (98-107) mmol/L Carbon Dioxide 27 (22-30) mmol/L Adrenal panel 08/03/16 Range/Units 08:45 Sodium 139 (137-145) mmol/L Potassium 3.6 (3.5-5.1) mmol/L Chloride 106 (98-107) mmol/L Carbon Dioxide 27 (22-30) mmol/L Assessment and Plan (1) Pancreatic cancer Narrative/Plan: Will proceed with catheter placement at this time. The risks of bleeding, infection, bowel injury, catheter malfunction were discussed. The patient and his understand and wish to proceed. Status: Acute
[2016-08-03] MEDS ORDERED: PROPOFOL 10 MG/ML 20 ML VIAL IV ONE (09:33)
[2016-08-03] MEDS ORDERED: MIDAZOLAM 2 MG/2 ML VIAL ONE (09:33)
[2016-08-03] MEDS ORDERED: fentaNYL (PF) 50 MCG/ML 2 ML AMP ONE (09:33)
[2016-08-03] MEDS ORDERED: MINERAL OIL 1 APPLIC/ML OIL TOPICAL ONE (09:56)
[2016-08-03] MEDS ORDERED: BUPIVACAIN-EPI 0.25%-1:200,000 30 ML VIAL SQ ONE ×2 (09:57)
[2016-08-03 10:56] VITALS: TEMP 98.6
[2016-08-03] MEDS ORDERED: NALOXONE 0.4 MG/ML 1 ML VIAL IV PRN (11:20)
[2016-08-03] MEDS ORDERED: HYDROcodone/APAP 5-325MG 1 EACH TAB PO PRN (11:20)
--- NOTE | 2016-08-03 11:23 | P.PCN ---
Date of Procedure: 08/03/16 Preoperative Diagnosis: Postoperative Diagnosis: Procedure(s) Performed: PREOPERATIVE DIAGNOSIS: Malignant ascites POSTOPERATIVE DIAGNOSIS: Same PROCEDURE: Peritoneal dialysis catheter insertion SURGEON: Inna EBL: Minimal ANESTHESIA: Sedation plus local COMPLICATIONS: None OPERATIVE PROCEDURE: The patient was placed in the operative table in the supine position. His abdomen was prepped and draped in usual sterile fashion. The ultrasound probe was used to evaluate the abdominal cavity. A site in the left midabdomen was chosen for placement. There was no bowel in the vicinity. A small vertical incision was made in the left periumbilical location. Dissection down through the subcutaneous tissues took place using electrocautery. The anterior rectus was divided vertically using the scalpel. The rectus was bluntly. The posterior rectus was visualized. An 0 Vicryl pursestring was placed. A small opening in the posterior rectus fascia and peritoneum took place using a Metzenbaum scissors. There were no adhesions to the suture that was placed. Approximate 3 L of serous fluid was evacuated. There was a small amount of blood seen within the fluid. The pigtail catheter was advanced into the pelvis over a stylette. No resistance was met. The inner cuff was secured to the fascia using the 0 Vicryl pursestring that was placed. The catheter was tunneled to an exit site in the left lateral lower quadrant. The catheter was allowed to drain further. A total of approximately 3 L was evacuated by the end of the case. The anterior rectus fascia was then reapproximated using a running 0 Vicryl stitch. The subcutaneous tissues reprepped using 3-0 Vicryl sutures and the skin using 4-0 Monocryl sutures. The outpatient dialysis adapter was applied to the end of the catheter. A sterile dressings then applied after Steri-Strips were placed over the incision. DISPOSITION: Stable to recovery room Implants: Indications for Procedure: Operative Findings: Description of Procedure:
[2016-08-03 13:12] VITALS: BP 125/76; PULSE 69; RESP 18
[2016-08-03] MEDS ORDERED: HEPARIN SODIUM,PORCINE 100 UNIT/ML 5 ML VIAL IV ONE (13:52)
== END 2016-08-03 14:01 | disposition home or self-care (01) ==
LOC: OR 08:06
PROVIDERS: ATTEND Surgery
DX: R18.0 Malignant ascites (principal); C25.9 Malignant neoplasm of pancreas, unspecified; C78.6 Secondary malignant neoplasm of retroperitoneum and peritoneum; C78.00 Secondary malignant neoplasm of unspecified lung; Z92.21 Personal history of antineoplastic chemotherapy; E11.9 Type 2 diabetes mellitus without complications; I10 Essential (primary) hypertension; F32.9 Major depressive disorder, single episode, unspecified; J44.9 Chronic obstructive pulmonary disease, unspecified; K21.9 Gastro-esophageal reflux disease without esophagitis; Z86.718 Personal history of other venous thrombosis and embolism; F17.290 Nicotine dependence, other tobacco product, uncomplicated; Z79.891 Long term (current) use of opiate analgesic; Z79.899 Other long term (current) drug therapy; Z88.6 Allergy status to analgesic agent; Z88.5 Allergy status to narcotic agent; Z88.0 Allergy status to penicillin
CPT/HCPCS: 80051; 85025; 49999; J2250; J1642; J0690; J3010; J2704